=== PATIENT | female | born 1950 | race Caucasian/White ===

== ENCOUNTER → 2020-09-12 | Outpatient (CLI) | payer MEDICARE ==
--- NOTE | 2020-09-20 11:47 | MM ---
Reason for exam: screening (asymptomatic). Last mammogram was performed 1 year and 7 months ago. History: Family history of breast cancer in sister at age 69. Excisional biopsy of the right breast. Physical Findings: A clinical breast exam by your physician is recommended on an annual basis and results should be correlated with mammographic findings. MG 3D Screening Mammo W/Cad Bilateral CC and MLO view(s) were taken. Prior study comparison: February 23, 2019, mammogram, performed at [facility]. September 20, 2011, mammogram, performed at [facility]. There are scattered fibroglandular densities. No significant changes when compared with prior studies. ASSESSMENT: Benign, BI-RAD 2 RECOMMENDATION: Routine screening mammogram of both breasts in 1 year.
== END ==
LOC: RADMAMWWP 13:08 → EDBD 13:20
PROVIDERS: ATTEND Internal Medicine
DX: Z12.31 Encounter for screening mammogram for malignant neoplasm of breast (principal)
CPT/HCPCS: 77063; 77067

== ENCOUNTER → 2020-10-04 | Outpatient (CLI) | payer MEDICARE ==
--- NOTE | 2020-10-04 13:27 | US ---
EXAMINATION TYPE: US liver DATE OF EXAM: 10/04/2020 COMPARISON: NONE CLINICAL HISTORY: R10.11 Right Upper Quad Pain. EXAM MEASUREMENTS: Liver Length: 14.6 cm Gallbladder Wall: 0.2 cm CBD: 0.3 cm Right Kidney: 10.8 x 4.6 x 4.6 cm Pancreas: Small cyst may be present within the pancreas measuring 0.8cm. Cyst, cystadenoma and cystad enocarcinoma could be considered. Additional workup with contrast CT with pancreas protocol or MRI wi th contrast is recommended. Liver: limited views of right lobe due to overlying bowel gas Gallbladder: wnl as seen, somewhat limited views due to overlying bowel gas Evidence for sonographic Osorio's sign: no CBD: wnl Right Kidney: lobular contour IMPRESSION: 1. Cystic neoplasm of the body of the pancreas is not excluded. Additional workup is recommended A [place] level critical message alert has been initiated for Jesus Madrigal MD via the [facility] Critical Results System on 10/04/2020 1:25 PM. This message alert has been sent to Jesus Madrigal MD via the preferences provided by the clinician for the receipt of Radiology Critical Findings. Message ID [id number].
== END | disposition home or self-care (01) ==
LOC: EDBD → RADUSWWP 09:00
PROVIDERS: ATTEND Internal Medicine
DX: R10.11 Right upper quadrant pain (principal)
CPT/HCPCS: 76705

== ENCOUNTER → 2020-10-11 | Outpatient (CLI) | payer MEDICARE ==
--- NOTE | 2020-10-12 05:38 | MR ---
EXAMINATION TYPE: MR pancreas wo/w con DATE OF EXAM: 10/11/2020 COMPARISON: None HISTORY: Abd pain, abnormal US, cyst seen on Pancreas CONTRAST: Standard multiplanar, multisequence MRI departmental protocol utilizing 7.5 mL intravenous Gadavist g adolinium contrast. Liver has normal size and contour. Gallbladder appears normal. Spleen appears intact. There is no adrenal mass. Kidneys have normal size and contour. There is no hydronephrosis. There is no sign of retroperitoneal adenopathy. The pancreas has normal size. Pancreatic duct appears normal. There is elongated 16 x 7 mm area in th e body of the pancreas that could be a crossing vessel. This has low signal on the T2 images. I see n o pathologic enhancement. The remainder of the pancreas appears normal. There is no ascites. Lung bases show no sign of pleural effusion. There is no evidence of pericardial effusion. IMPRESSION: Elongated area in the body of the pancreas is probably the hypoechoic area seen on the recent ultraso und and I think this is related to a crossing vessel. No evidence of a solid pancreatic mass.
== END | disposition home or self-care (01) ==
LOC: RADMRIMAIN 06:10
PROVIDERS: ATTEND Internal Medicine
DX: R93.89 Abnormal findings on diagnostic imaging of other specified body structures (principal); K86.2 Cyst of pancreas
CPT/HCPCS: 74183; A9585

== ENCOUNTER 2021-03-15 11:19 | Inpatient (IN) | payer MEDICARE ==
--- NOTE | 2021-03-15 12:03 | ED ---
General Adult HPI - General Chief complaint: Neuro Symptoms/Deficit Stated complaint: abn CT scan of head Time Seen by Provider: 03/15/21 11:46 Source: patient, family, RN notes reviewed Mode of arrival: ambulatory Limitations: no limitations - History of Present Illness Initial comments: Patient is a pleasant 70-year-old female presenting to the emergency department for abnormal CT. Patient has been having headaches for the past 3-1/2 weeks. Headaches have been waxing and waning, sometimes severe. Headache is mild at this time, right posterior parietal region. Patient has had a couple of episodes of mild expressive aphasia, difficulty finding words or wrong words coming out. Never slurred speech or garbled speech. No speech problems today. Patient has also felt occasionally slightly off balance, no falling. Off balance has been mild. No extremity weakness or facial weakness. No loss of sensation. No confusion. - Related Data Allergies Allergy/AdvReac Type Severity Reaction Status Date / Time iodine Allergy Rash/Hives Verified 03/15/21 11:26 Review of Systems ROS Statement: Those systems with pertinent positive or pertinent negative responses have been documented in the HPI. ROS Other: All systems not noted in ROS Statement are negative. Constitutional: Denies: fever Eyes: Denies: eye pain ENT: Denies: ear pain Respiratory: Denies: cough Cardiovascular: Denies: chest pain Endocrine: Denies: fatigue Gastrointestinal: Denies: abdominal pain Genitourinary: Denies: dysuria Musculoskeletal: Denies: back pain Skin: Denies: rash Neurological: Reports: as per HPI, headache Past Medical History Past Medical History: Diabetes Mellitus, GERD/Reflux, Hyperlipidemia, Hypertension History of Any Multi-Drug Resistant Organisms: None Reported Past Surgical History: Appendectomy, Back Surgery Past Psychological History: No Psychological Hx Reported Smoking Status: Never smoker Past Alcohol Use History: None Reported Past Drug Use History: None Reported General Exam Limitations: no limitations General appearance: alert, in no apparent distress Head exam: Present: atraumatic, normocephalic Eye exam: Present: normal appearance, PERRL, EOMI ENT exam: Present: normal oropharynx Neck exam: Present: normal inspection Respiratory exam: Present: normal lung sounds bilaterally Cardiovascular Exam: Present: regular rate, normal rhythm GI/Abdominal exam: Present: soft. Absent: tenderness Extremities exam: Present: normal inspection Neurological exam: Present: alert, oriented X3, CN II-XII intact. Absent: motor sensory deficit Expanded Neurological exam: Present: protecting the airway Speech: Present: fluid speech Cranial nerves: EOM's Intact: Normal, Facial Sensation: Normal Sensory exam: Upper Extremity Light Touch: Normal, Lower Extremity Light Touch: Normal Motor strength exam: RUE: 5, LUE: 5, RLE: 5, LLE: 5 Eye Response: (4) open spontaneously Motor Response: (6) obeys commands Verbal Response: (5) oriented Psychiatric exam: Present: normal affect, normal mood Skin exam: Present: normal color Course Vital Signs 03/15/21 11:27 Temperature 97.8 F Pulse Rate 105 H Respiratory 18 Rate Blood Pressure 191/93 O2 Sat by Pulse 98 Oximetry EKG Findings - EKG Comments: EKG Findings:: No sinus rhythm with a rate of 100. MI 160. QRS 82. QT 346. QTc 446 per left axis. LVH criteria. No acute ST change. Medical Decision Making - Medical Decision Making Case was discussed with Dr. Sherman who recommends admission with neurology consult and MRI. He also recommends aspirin, brilinta, and Lipitor. Patient updated. Dr. Madrigal has been paged for admission. Case was discussed with Dr. Madrigal, who will admit his patient with consult for vascular. Disposition Clinical Impression: Transient cerebral ischemia Disposition: ADMITTED IP TO THIS HOSP Is patient prescribed a controlled substance at d/c from ED?: No Decision Time: 12:29
[2021-03-15] MEDS ORDERED: ASPIRIN 325 MG TAB PO STA (12:31)
[2021-03-15] MEDS ORDERED: TICAGRELOR 90 MG TAB PO STA (12:33)
[2021-03-15] MEDS: SODIUM CHLORIDE 0.9% 1,000 ML IV SCH ×2 (12:56→22:18)
[2021-03-15] MEDS: ATORVASTATIN 40 MG TAB PO SCH (12:57)
[2021-03-15 13:02] LABS: Basophils % (A) 0 %; Eosinophils # (A) 0.2 k/uL (0-0.7); Eosinophils % (A) 2 %; HCT 38.5 % (34.0-46.0); HGB 13.2 gm/dL (11.4-16.0); Lymphocytes # (A) 1.2 k/uL (1.0-4.8); Lymphocytes % (A) 8 %; MCH 28.9 pg (25.0-35.0); MCHC 34.3 g/dL (31.0-37.0); MCV 84.3 fL (80.0-100.0); Mean Platelet Volume 9.5; Monocytes # (A) 0.2 k/uL (0-1.0); Monocytes % (A) 1 %; Neutrophils # (A) 12.6 k/uL (1.3-7.7); Neutrophils % (A) 89 %; Platelet Count 164 k/uL (150-450); RBC 4.56 m/uL (3.80-5.40); RDW 13.4 % (11.5-15.5); WBC 14.2 k/uL (3.8-10.6)
[2021-03-15 13:13] LABS: INR 0.9 (<1.2); Partial Thromboplastin Time 22.4 sec (22.0-30.0); Prothrombin Time 10.2 sec (9.0-12.0)
--- NOTE | 2021-03-15 13:40 | XR ---
EXAMINATION TYPE: XR chest 2V DATE OF EXAM: 03/15/2021 COMPARISON: None HISTORY: 70-year-old female confusion, altered mental status TECHNIQUE: PA and lateral views FINDINGS: The cardiomediastinal silhouette, aorta, and pulmonary vasculature are within normal limits. Intersti tial prominence. No consolidation or pleural effusion. IMPRESSION: Interstitial prominence may in part be chronic. Consider bronchitis or chronic asthma. No focal infil trate seen.
[2021-03-15 13:47] LABS: Calcium 9.8 mg/dL (8.4-10.2); Total Bilirubin 0.5 mg/dL (0.2-1.3)
[2021-03-15 14:12] LABS: Albumin 4.3 g/dL (3.5-5.0); Potassium 5.3 mmol/L (3.5-5.1); Total Protein 7.6 g/dL (6.3-8.2)
--- NOTE | 2021-03-15 14:47 | P.HPIM ---
History of Present Illness H&P Date: 03/15/21 Martina Lopez, is a 70-year-old female who presented to the office last week with a chief complaint of severe headache that started 1 week prior to presentation, patient was extremely worried to due to having family members with brain aneurysm, CT angiogram of the brain was ordered and was done this morning, and it did not show any evidence of aneurysm in the [place], however there was evidence of severe bilateral internal carotid artery plaque formation, with evidence of complete occlusion of the proximal left internal carotid artery. Patient was sent to emergency room she was evaluated in emergency room and admitted to telemetry floor, vascular surgery consultation was requested, patient was continuing to having severe headache, neurology consultation was REQUESTED IN THE EMERGENCY ROOM. Past medical history is significant for history of hypertension, history of hyperlipidemia, history of insulin-dependent diabetes mellitus, and history of pancreatic cyst. Patient is a lifelong nonsmoker. Past Medical History Past Medical History: Diabetes Mellitus, GERD/Reflux, Hyperlipidemia, Hypertension History of Any Multi-Drug Resistant Organisms: None Reported Past Surgical History: Appendectomy, Back Surgery Past Psychological History: No Psychological Hx Reported Smoking Status: Never smoker Past Alcohol Use History: None Reported Past Drug Use History: None Reported Medications and Allergies Home Medications Medication Instructions Recorded Confirmed Type Ascorbic Acid [Vitamin C] 1,000 mg PO DAILY 03/15/21 03/15/21 History Aspirin EC [Ecotrin Low Dose] 81 mg PO DAILY 03/15/21 03/15/21 History Cholecalciferol [Vitamin D3 (25 25 mcg PO DAILY 03/15/21 03/15/21 History Mcg = 1000 Iu)] Insulin Degludec [Tresiba 32 units SQ AC-SUPPER 03/15/21 03/15/21 History Flextouch U-200 Pen] Insulin Lispro [humaLOG Kwikpen] 18 unit SQ AC-LUNCH 03/15/21 03/15/21 History Insulin Lispro [humaLOG Kwikpen] 18 unit SQ DAILY PRN 03/15/21 03/15/21 History Insulin Lispro [humaLOG Kwikpen] 24 unit SQ HS 03/15/21 03/15/21 History Insulin Lispro [humaLOG Kwikpen] 28 unit SQ AC-BRKFST 03/15/21 03/15/21 History Liraglutide [Victoza 3-Sin] 1.8 mg SQ DAILY 03/15/21 03/15/21 History Omeprazole [PriLOSEC] 20 mg PO DAILY 03/15/21 03/15/21 History Prevagen 1 cap PO DAILY 03/15/21 03/15/21 History Simvastatin 10 mg PO AC-SUPPER 03/15/21 03/15/21 History Vit C/E/Zn/Coppr/Lutein/Zeaxan 1 cap PO DAILY 03/15/21 03/15/21 History [Preservision Areds 2 Softgel] lisinopriL [Zestril] 20 mg PO DAILY 03/15/21 03/15/21 History Allergies Allergy/AdvReac Type Severity Reaction Status Date / Time iodine Allergy Rash/Hives Verified 03/15/21 13:19 Physical Exam Vitals: Vital Signs Temp Pulse Resp BP Pulse Ox 03/15/21 13:00 99 18 03/15/21 12:33 96 18 03/15/21 11:27 97.8 F 105 H 18 191/93 98 Intake and Output 03/14/21 03/15/21 03/15/21 22:59 06:59 14:59 Other: Weight 74.843 kg In general patient is alert and oriented x 3 in no distress HEENT head normocephalic and atraumatic Neck is supple no JVD no goiter no lymphadenopathy no carotid bruit Chest examination is clear to auscultation no crackles no wheezing Cardiac exam reveals regular heart sounds S1 and S2 no gallops no murmurs Abdomen is soft nontender no organomegaly with normal bowel sounds Extremity exam reveals no edema no cyanosis or clubbing Neurological examination reveals no gross focal deficits Results CBC & Chem 7: 03/15/21 12:49 03/15/21 12:49 Labs: Abnormal Lab Results - Last 24 Hours (Table) 03/15/21 Range/Units 12:49 WBC 14.2 H (3.8-10.6) k/uL Neutrophils # 12.6 H (1.3-7.7) k/uL Assessment and Plan Plan: Severe intractable headache for the last 2-3 weeks Severe bilateral carotid artery plaque formation in bilateral carotid arteries with evidence of 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
[2021-03-15 16:19] LABS: Glucose,Whole Blood 142 mg/dL (75-99)
[2021-03-15] MEDS ORDERED: ALPRAZolam 0.5 MG TAB PO PRN (18:36)
[2021-03-15] MEDS ORDERED: HYDROcodone/APAP 5-325MG 1 EACH TAB PO PRN (18:39)
[2021-03-15] MEDS ORDERED: ASPIRIN-ACET-CAFF 250-250-65MG 1 EACH TAB PO PRN (18:57)
[2021-03-15 20:13] LABS: Glucose,Whole Blood 267 mg/dL (75-99)
[2021-03-15] MEDS: ACETAMINOPHEN TAB 325 MG TAB PO PRN (20:45)
[2021-03-15] MEDS: TICAGRELOR 90 MG TAB PO SCH (20:46)
[2021-03-15] MEDS: INSULIN ASPART (NovoLOG) 100 UNIT/ML VIAL SQ SCH (20:51)
--- NOTE | 2021-03-15 23:25 | P.CNNES ---
History of Present Illness Consult date: 03/15/21 Requesting physician: Arvind Padilla Reason for Consult: TIA, stenosis History of Present Illness: Patient is a 70-year-old female came to the hospital this morning at 11:19 AM for cephalgia and abnormal CTA head and neck. Patient 3-1/2 weeks ago started having pain in the right upper occipital region. It has been consistent headache which she has never had in the past. The headache comes and goes. The Excedrin dulls the headache but once it wears off, it goes up to 10+/10. It has been occurring every day. Only couple times in the last 3 weeks that she had no headache but otherwise mostly present. Patient states that she also is very talkative. A couple times in the last 1 week she had instance, when she had some word finding problem, but her help her out. It was not lasting for any length of time, only spontaneous occurrences sporadically, which she was not sure if it was "really a significant speech problem". Patient denies any numbness tingling any focal symptoms whatsoever. No facial droop or any problem with the vision. As patient's son has history of cerebral aneurysms, therefore she was seen by her primary physician, who initiated CTA of head and neck, which showed abnormality as below, therefore she was referred to the ER for further evaluation. Her vital signs on arrival blood pressure 191/93, pulse rate 105, temperature 97.8. Blood test shows WBC 14.2 hemoglobin 13.2, BUN 26, creatinine 0.94. EKG shows normal sinus rhythm. Minimal voltage criteria for LVH. CTA of head and neck showed severe plaque causing complete occlusion proximal left ICA, shortly after its origin. Additional severe calcified plaque supraclinoid segment while lateral ICAs, cannot exclude significant stenosis. No aneurysm at the level of [place]. Patient has been given aspirin 325 mg in the ER. Also given Brillinta 180 mg stat. Patient has history of diabetes for 10 years and her last A1c is 6.0 as per patient. Hypertension for couple years. She never smoked. He never drinks alcohol. She has been taking aspirin 81 mg daily for last 1-1/2 years. Her home medications include aspirin 81 mg, insulin, omeprazole, lisinopril 20 mg simvastatin 10 mg, victoza Review of Systems Completely unremarkable except as mentioned HPI. Denies any fever or chills. No chest pain, abdominal pain, nausea vomiting diarrhea, loss of control of urine. No dysuria. No dysphagia. No hearing loss. No visual disturbance. Past Medical History Past Medical History: Diabetes Mellitus, GERD/Reflux, Hyperlipidemia, Hyp ertension History of Any Multi-Drug Resistant Organisms: None Reported Past Surgical History: Appendectomy, Back Surgery Past Psychological History: No Psychological Hx Reported Smoking Status: Never smoker Past Alcohol Use History: None Reported Past Drug Use History: None Reported Medications and Allergies Home Medications Medication Instructions Recorded Confirmed Type Ascorbic Acid [Vitamin C] 1,000 mg PO DAILY 03/15/21 03/15/21 History Aspirin EC [Ecotrin Low Dose] 81 mg PO DAILY 03/15/21 03/15/21 History Cholecalciferol [Vitamin D3 (25 25 mcg PO DAILY 03/15/21 03/15/21 History Mcg = 1000 Iu)] Insulin Degludec [Tresiba 32 units SQ AC-SUPPER 03/15/21 03/15/21 History Flextouch U-200 Pen] Insulin Lispro [humaLOG Kwikpen] 18 unit SQ AC-LUNCH 03/15/21 03/15/21 History Insulin Lispro [humaLOG Kwikpen] 18 unit SQ DAILY PRN 03/15/21 03/15/21 History Insulin Lispro [humaLOG Kwikpen] 24 unit SQ HS 03/15/21 03/15/21 History Insulin Lispro [humaLOG Kwikpen] 28 unit SQ AC-BRKFST 03/15/21 03/15/21 History Liraglutide [Victoza 3-Sin] 1.8 mg SQ DAILY 03/15/21 03/15/21 History Omeprazole [PriLOSEC] 20 mg PO DAILY 03/15/21 03/15/21 History Prevagen 1 cap PO DAILY 03/15/21 03/15/21 History Simvastatin 10 mg PO AC-SUPPER 03/15/21 03/15/21 History Vit C/E/Zn/Coppr/Lutein/Zeaxan 1 cap PO DAILY 03/15/21 03/15/21 History [Preservision Areds 2 Softgel] lisinopriL [Zestril] 20 mg PO DAILY 03/15/21 03/15/21 History Allergies Allergy/AdvReac Type Severity Reaction Status Date / Time iodine Allergy Rash/Hives Verified 03/15/21 13:19 Physical Examination - Vital Signs Vital Signs: Vital Signs Temp Pulse Resp BP Pulse Ox 03/15/21 13:00 99 18 03/15/21 12:33 96 18 03/15/21 11:27 97.8 F 105 H 18 191/93 98 Intake and Output 03/14/21 03/15/21 03/15/21 22:59 06:59 14:59 Other: Weight 74.843 kg Patient is an elderly female, very pleasant, in no acute distress. Patient is alert awake oriented to time place and person. Speech and language functions are normal. Patient can name and repeat very well. No aphasia or dysarthria. Comprehension is perfect intact. Attention, concentration and fund of knowledge is adequate. On cranial examination, pupils are equal, round and reacting to light, visual steel are full on confrontation, extraocular muscles are intact with no nystagmus. Face is symmetric, tongue protrudes to the midline. Palatal elevation and sensation normal, hearing and shoulder shrug normal, facial sensation normal. Shoulder shrug normal. On muscle strength testing, there is no pronator drift and the strength is normal in arms and legs distally and proximally. Deep tendon reflexes are 2+ all over and plantars are extremely sensitive therefore withdrew. Sensory to touch is equal with no neglect on double simultaneous stimulation. Cerebellar function showed no ataxia for nahaxv-[id number]-pucc testing. No dysdiadochokinesia. Tone and bulk of muscles normal. Gait normal. On general examination, there is no carotid bruit or murmur, S1-S2 audible. Abdomen is soft nontender. Chest is clear. Peripheral pulses are present. No edema. Results - Laboratory Findings CBC and BMP: 03/15/21 12:49 03/15/21 12:49 Abnormal Lab Findings: Abnormal Labs 03/15/21 12:49 WBC 14.2 H Neutrophils # 12.6 H Assessment and Plan Assessment: * New onset cephalgia and some intermittent word finding difficulty. Rule out TIA * Probable complete occlusion left ICA. Possible significant stenosis s upraclinoid bilateral ICA. Rule out embolic source. * Hypertension * Diabetes * Family history of cerebral aneurysm Plan: * CTA of head and neck showed severe plaque causing complete occlusion proximal left ICA, shortly after its origin. Additional severe calcified plaque rodriguez praclinoid segment bilateral ICAs, cannot exclude significant stenosis. No aneurysm at the level of [place]. * Await vascular surgery consultation. * 2-D echo has been completed, results pending. * Agree with dual antiplatelet medication with Brilinta 90 mg twice a day and aspirin 81 mg daily. Patient has received a loading dose of Brilinta in the ER. * Telemetry monitoring so far showing sinus tachycardia in the low 100s. No other arrhythmia. * Fasting lipid panel, hemoglobin A1c * Continue neuro checks. * Permissive hypertension. Treat blood pressure if systolic > 200 and diastolic > 110. * Thank you for the consult.
[2021-03-16 06:17] LABS: Glucose,Whole Blood 119 mg/dL (75-99)
[2021-03-16] MEDS ORDERED: ASPIRIN 325 MG TAB PO SCH (09:00)
[2021-03-16] MEDS ORDERED: NON FORMULARY DRUG (Aspirin Ec 81 MG Tablet) PO SCH (09:00)
[2021-03-16] MEDS: INSULIN ASPART (NovoLOG) 100 UNIT/ML VIAL SQ SCH ×3 (09:41→21:37)
[2021-03-16] MEDS: TICAGRELOR 90 MG TAB PO SCH ×2 (09:41→21:33)
[2021-03-16] MEDS: ENOXAPARIN 40 MG/0.4 ML SYRINGE SQ SCH (09:41)
[2021-03-16] MEDS: VIT A,C & E-LUTEIN-MINERALS 1 EACH TAB PO SCH (09:42)
[2021-03-16] MEDS: lisinopriL 20 MG TAB PO SCH (09:42)
[2021-03-16] MEDS: ASPIRIN 81 MG PO SCH (09:42)
[2021-03-16] MEDS: ASCORBIC ACID 500 MG TAB PO SCH (09:42)
[2021-03-16] MEDS: ATORVASTATIN 40 MG TAB PO SCH (09:42)
[2021-03-16] MEDS: PANTOPRAZOLE 40 MG TABLET PO SCH (09:42)
[2021-03-16] MEDS: CHOLECALCIFEROL 25 MCG (1000 IU) TABLET PO SCH (09:42)
[2021-03-16] MEDS: NON FORMULARY DRUG (Liraglutide [Victoza 3-Pak] 0.6 MG/0.1 ML Ml) SQ SCH (09:43)
[2021-03-16] MEDS: SODIUM CHLORIDE 0.9% 1,000 ML IV SCH ×3 (09:44→21:32)
[2021-03-16] MEDS: NON FORMULARY DRUG (Prevagen 1 CAP) PO SCH (09:45)
--- NOTE | 2021-03-16 09:52 | US ---
EXAMINATION TYPE: US carotid duplex BILAT DATE OF EXAM: 03/16/2021 COMPARISON: CTA CLINICAL HISTORY: Left ICA occlusion per CTA. Patient stated had EXAM MEASUREMENTS: RIGHT: Peak Systolic Velocity (PSV) cm/sec ----- Right CCA: 82.7 ----- Right ICA: 120.0 ----- Right ECA: 96.3 Proximal ICA/CCA ratio: 1.5 RIGHT: End Diastole cm/sec ----- Right CCA: 14.1 ----- Right ICA: 23.4 ----- Right ECA: 0.0 LEFT: Peak Systolic Velocity (PSV) cm/sec ----- Left CCA: 80.1 ----- Left ICA: 221.8 Mid ----- Left ECA: 133.8 ICA/CCA ratio: 2.8 LEFT: End Diastole cm/sec ----- Left CCA: 16.7 ----- Left ICA: 40.7 ----- Left ECA: 0.0 VERTEBRALS (direction of flow): Right Vertebral: Antegrade Left Vertebral: Antegrade Rhythm: Normal IMPRESSION: Irregular moderate mixed wall plaque noted bilateral carotid system with abnormally elev ated PSV in Left ICA and Left ECA. NASCET criteria was used in interpretation of this exam? Criteria for Assigning % of Stenosis / Diameter reduction (Estimation based on the indirect measurements of the internal carotid artery velocities (ICA PSV). 1. Normal (no stenosis)=ICA PSV < 125 cm/s: ratio < 2.0: ICA EDV<40 cm/s. 2. Less than 50% stenosis=ICA PSV < 125 cm/s: ratio < 2.0: ICA EDV<40 cm/s. 3. 50 to 69% stenosis=ICA PSV of 125 to 230 cm/s: ration 2.0 ? 4.0: ICA EDV 40-100 cm/s. 4. Greater than 70% stenosis to near occlusion= ICA PSV > 230 cm/s: ratio > 4.0: ICA EDV > 100 cm/s. 5. Near occlusion= ICA PSV velocities may be low or undetectable: variable ratio and ICA EDV. 6. Total occlusion=unable to detect flow.
[2021-03-16] MEDS: ACETAMINOPHEN TAB 325 MG TAB PO PRN (09:53)
--- NOTE | 2021-03-16 10:31 | ECHOF ---
Referral Reason:Thrombus MEASUREMENTS -------- HEIGHT: 162.6 cm WEIGHT: 74.8 kg BP: IVSd: 1.3 cm (0.6 - 1.1) LVIDd: 3.9 cm (3.9 - 5.3) LVPWd: 1.3 cm (0.6 - 1.1) IVSs: 1.7 cm LVIDs: 2.7 cm LVPWs: 1.4 cm LAESV Index (A-L): 30.88 ml/m Ao Diam: 2.7 cm (2.0 - 3.7) MV EXCURSION: 15.304 mm (> 18.000) MV EF SLOPE: 105 mm/s (70 - 150) MV E Julio: 1.18 m/s MV DecT: 98 ms MV A Julio: 0.68 m/s MV E/A Ratio: 1.74 RAP: 5.00 mmHg RVSP: 11.51 mmHg FINDINGS -------- Sinus rhythm. This was a technically adequate study. The left ventricular size is normal. There is mild concentric left ventricular hypertrophy. Overa ll left ventricular systolic function is low-normal with, an EF between 50 - 55 %. The right ventricle is normal in size. LA is midly dilated 29-33ml/m2. The right atrial size is normal. The aortic valve was not well visualized. Mild mitral regurgitation is present. Mild tricuspid regurgitation present. Right ventricular systolic pressure is normal at < 35 mmHg. The pulmonic valve was not well visualized. There is no pericardial effusion. CONCLUSIONS -------- 1. The left ventricular size is normal. 2. There is mild concentric left ventricular hypertrophy. 3. Overall left ventricular systolic function is low-normal with, an EF between 50 - 55 %. 4. The right ventricle is normal in size. 5. LA is midly dilated 29-33ml/m2. 6. The right atrial size is normal. 7. The aortic valve was not well visualized. 8. Mild mitral regurgitation is present. 9. Mild tricuspid regurgitation present. 10. The pulmonic valve was not well visualized. 11. There is no pericardial effusion. CAKE KNOCKER: Alana Schilling RDCS
[2021-03-16 10:37] LABS: Chol/HDL Ratio 3.28
[2021-03-16 12:01] LABS: Glucose,Whole Blood 118 mg/dL (75-99)
--- NOTE | 2021-03-16 12:35 | P.GSCN ---
History of Present Illness Consult date: 03/16/21 Reason for Consult: Carotid Stenosis Requesting physician: Arvind Padilla History of present illness: This is an 80-year-old female who came into the emergency department yesterday morning with complaints of pain in her head and difficulty finding her words. The patient reports she has been having persistent headaches for the past 3-4 weeks, waxing and waning sometimes very severe. She had a outpatient CAT scan which was abnormal and was told to come to the emergency department for further evaluation. Patient has a past medical history of diabetes mellitus, GERD, hyperlipidemia, and hypertension. On admission she was noted to have elevated blood pressure of 191/93, heart rate 105. She underwent a CT angiogram of the head and neck that showed severe plaque causing complete occlusion proximal left ICA, shortly after its origin. Additional severe calcified plaque disease breath glenoid segment while lateral ICAs, cannot exclude significant stenosis no aneurysm at the level of [place]. Patient denies any other focal deficits such as weakness in the extremities, slurring of speech, visual distu rbances, or difficulty swallowing. She currently denies any focal deficits, shortness of breath, chest pain, abdominal pain, nausea, or vomiting. She denies any fever or chills. Patient states her son had 2 brain aneurysms. Denies any previous knowledge of carotid stenosis. States that diabetes has been well controlled. Review of Systems A 14 point review of systems was reviewed all pertinent positives and negatives as stated in the HPI. Past Medical History Past Medical History: Diabetes Mellitus, GERD/Reflux, Hyperlipidemia, Hypertension History of Any Multi-Drug Resistant Organisms: None Reported Past Surgical History: Appendectomy, Back Surgery Past Psychological History: No Psychological Hx Reported Smoking Status: Never smoker Past Alcohol Use History: None Reported Past Drug Use History: None Reported Medications and Allergies Home Medications Medication Instructions Recorded Confirmed Type Ascorbic Acid [Vitamin C] 1,000 mg PO DAILY 03/15/21 03/15/21 History Aspirin EC [Ecotrin Low Dose] 81 mg PO DAILY 03/15/21 03/15/21 History Cholecalciferol [Vitamin D3 (25 25 mcg PO DAILY 03/15/21 03/15/21 History Mcg = 1000 Iu)] Insulin Degludec [Tresiba 32 units SQ AC-SUPPER 03/15/21 03/15/21 History Flextouch U-200 Pen] Insulin Lispro [humaLOG Kwikpen] 18 unit SQ AC-LUNCH 03/15/21 03/15/21 History Insulin Lispro [humaLOG Kwikpen] 18 unit SQ DAILY PRN 03/15/21 03/15/21 History Insulin Lispro [humaLOG Kwikpen] 24 unit SQ HS 03/15/21 03/15/21 History Insulin Lispro [humaLOG Kwikpen] 28 unit SQ AC-BRKFST 03/15/21 03/15/21 History Liraglutide [Victoza 3-Sin] 1.8 mg SQ DAILY 03/15/21 03/15/21 History Omeprazole [PriLOSEC] 20 mg PO DAILY 03/15/21 03/15/21 History Prevagen 1 cap PO DAILY 03/15/21 03/15/21 History Simvastatin 10 mg PO AC-SUPPER 03/15/21 03/15/21 History Vit C/E/Zn/Coppr/Lutein/Zeaxan 1 cap PO DAILY 03/15/21 03/15/21 History [Preservision Areds 2 Softgel] lisinopriL [Zestril] 20 mg PO DAILY 03/15/21 03/15/21 History Allergies Allergy/AdvReac Type Severity Reaction Status Date / Time iodine Allergy Rash/Hives Verified 03/15/21 13:19 Surgical - Exam Vital Signs Temp Pulse Resp BP Pulse Ox 97.8 F 105 H 18 191/93 98 03/15/21 11:27 03/15/21 11:27 03/15/21 11:27 03/15/21 11:27 03/15/21 11:27 General appearance: The patient is alert, oriented, in no acute distress. HET: Head is normocephalic and atraumatic. Pupils are equal and reactive. Rudolph pharynx is clear without lesions. Neck: Supple without lymphadenopathy. Trachea midline. Heart: S1 S2. Regular rate and rhythm. Lungs: No crackles or wheezes are heard. Abdomen: Soft, nontender, nondistended with bowel sounds. No peritoneal signs. No palpable organomegaly or masses. Extremities: Normal skin color and turgor. No cyanosis, rash, ulceration, clubbing, or edema. Radial and pedal pulses are 2/4 bilaterally. Neurological: No focal deficits. Strength and sensation are grossly intact. Results - Labs 03/15/21 12:49 03/15/21 12:49 Abnormal Lab Results - Last 24 Hours (Table) 03/15/21 03/15/21 03/15/21 Range/Units 12:49 12:49 16:17 WBC 14.2 H (3.8-10.6) k/uL Neutrophils # 12.6 H (1.3-7.7) k/uL Sodium 132 L (137-145) mmol/L Potassium 5.3 H (3.5-5.1) mmol/L Carbon Dioxide 19 L (22-30) mmol/L BUN 28 H (7-17) mg/dL Glucose 200 H (74-99) mg/dL POC Glucose (mg/dL) 142 H (75-99) mg/dL AST 38 H (14-36) U/L 03/15/21 03/16/21 Range/Units 20:11 06:16 WBC (3.8-10.6) k/uL Neutrophils # (1.3-7.7) k/uL Sodium (137-145) mmol/L Potassium (3.5-5.1) mmol/L Carbon Dioxide (22-30) mmol/L BUN (7-17) mg/dL Glucose (74-99) mg/dL POC Glucose (mg/dL) 267 H 119 H (75-99) mg/dL AST (14-36) U/L Diabetes panel 03/15/21 Range/Units 12:49 Sodium 132 L (137-145) mmol/L Potassium 5.3 H (3.5-5.1) mmol/L Chloride 101 (98-107) mmol/L Carbon Dioxide 19 L (22-30) mmol/L BUN 28 H (7-17) mg/dL Creatinine 0.84 (0.52-1.04) mg/dL Glucose 200 H (74-99) mg/dL Calcium 9.8 (8.4-10.2) mg/dL AST 38 H (14-36) U/L ALT 21 (4-34) U/L Alkaline Phosphatase 84 (38-126) U/L Total Protein 7.6 (6.3-8.2) g/dL Albumin 4.3 (3.5-5.0) g/dL Calcium panel 03/15/21 Range/Units 12:49 Calcium 9.8 (8.4-10.2) mg/dL Albumin 4.3 (3.5-5.0) g/dL Pituitary panel 03/15/21 Range/Units 12:49 Sodium 132 L (137-145) mmol/L Potassium 5.3 H (3.5-5.1) mmol/L Chloride 101 (98-107) mmol/L Carbon Dioxide 19 L (22-30) mmol/L BUN 28 H (7-17) mg/dL Creatinine 0.84 (0.52-1.04) mg/dL Glucose 200 H (74-99) mg/dL Calcium 9.8 (8.4-10.2) mg/dL Adrenal panel 03/15/21 Range/Units 12:49 Sodium 132 L (137-145) mmol/L Potassium 5.3 H (3.5-5.1) mmol/L Chloride 101 (98-107) mmol/L Carbon Dioxide 19 L (22-30) mmol/L BUN 28 H (7-17) mg/dL Creatinine 0.84 (0.52-1.04) mg/dL Glucose 200 H (74-99) mg/dL Calcium 9.8 (8.4-10.2) mg/dL Total Bilirubin 0.5 (0.2-1.3) mg/dL AST 38 H (14-36) U/L ALT 21 (4-34) U/L Alkaline Phosphatase 84 (38-126) U/L Total Protein 7.6 (6.3-8.2) g/dL Albumin 4.3 (3.5-5.0) g/dL - Imaging Comments: See HPI Assessment and Plan Assessment: 1. Carotid stenosis, complete occlusion left ICA per CT angiogram 2. New-onset of headaches, with some intermittent difficulty with word finding 3. Diabetes 4. Hypertension 5. Hyperlipidemia Plan: 1. Continue symptomatic and supportive care 2. Obtain carotid ultrasound 3. Continued dual antiplatelet therapy and statin 4. Further recommendations to follow Thank you for this consultation, we will continue to follow. The impression and plan of care has been dictated as directed. Dr. Duffy I performed a history and examination of this patient, discussed the same with the dictator. I agree with the dictator's note ,documented as a scribe. Any additional findings or plans will be noted.
--- NOTE | 2021-03-16 14:15 | P.PN ---
Subjective Progress Note Date: 03/16/21 Martina Lopez, is a 70-year-old female who presented to the office last week with a chief complaint of severe headache that started 1 week prior to presentation, patient was extremely worried to due to having family members with brain aneurysm, CT angiogram of the brain was ordered and was done this morning, and it did not show any evidence of aneurysm in the [place], however there was evidence of severe bilateral internal carotid artery plaque formation, with evidence of complete occlusion of the proximal left internal carotid artery. Patient was sent to emergency room she was evaluated in emergency room and admitted to telemetry floor, vascular surgery consultation was requested, keke anguiano was continuing to having severe headache, neurology consultation was REQUESTED IN THE EMERGENCY ROOM. Past medical history is significant for history of hypertension, history of hyperlipidemia, history of insulin-dependent diabetes mellitus, and history of pancreatic cyst. Patient is a lifelong nonsmoker. On 03/16/2021 Patient was seen and examined on the medical floor, he is alert and oriented x 3 in no distress, he denies any complaints there is no fever or chills no headache or dizziness no chest pain no shortness of breath no palpitation no cough no nausea or vomiting no abdominal pain no diarrhea no blood in the stools no burning with urination no frequency or urgency and no hematuria, there is no weakness or numbness in any of the extremities no change in vision speech or gait. At this time patient was started on aspirin and Brillinta, blood pressure has been consistently elevated, with systolic blood pressure in the 180 range, amlodipine 5 mg by mouth once daily was added to regimen, will continue to monitor, carotid Doppler was ordered by vascular surgery, awaiting further recommendation will recheck in a.m.. Objective - Vital Signs Vital signs: Vital Signs Temp 97.6 F 03/16/21 12:05 Pulse 82 03/16/21 12:05 Resp 17 03/16/21 12:05 BP 182/65 03/16/21 12:05 Pulse Ox 96 03/16/21 12:05 Intake & Output 03/15/21 03/16/21 03/16/21 18:59 06:59 18:59 Intake Total 60 1200 125 Balance 60 1200 125 Weight 74.843 kg 72.1 kg Intake: Intake, IV Titration 900 Amount Sodium Chloride 0.9% 1, 900 000 ml @ 100 mls/hr IV . Q10H TERRI Rx#:[id number] Oral 60 300 125 Other: # Voids 1 1 - Exam In general patient is alert and oriented x 3 in no distress HEENT head normocephalic and atraumatic Neck is supple no JVD no goiter no lymphadenopathy no carotid bruit Chest examination is clear to auscultation no crackles no wheezing Cardiac exam reveals regular heart sounds S1 and S2 no gallops no murmurs Abdomen is soft nontender no organomegaly with normal bowel sounds Extremity exam reveals no edema no cyanosis or clubbing Neurological examination reveals no gross focal deficits - Labs CBC & Chem 7: 03/15/21 12:49 03/15/21 12:49 Labs: Abnormal Lab Results - Last 24 Hours (Table) 03/15/21 03/15/21 03/15/21 Range/Units 12:49 16:17 20:11 Sodium 132 L (137-145) mmol/L Potassium 5.3 H (3.5-5.1) mmol/L Carbon Dioxide 19 L (22-30) mmol/L BUN 28 H (7-17) mg/dL Glucose 200 H (74-99) mg/dL POC Glucose (mg/dL) 142 H 267 H (75-99) mg/dL AST 38 H (14-36) U/L 03/16/21 03/16/21 Range/Units 06:16 11:47 Sodium (137-145) mmol/L Potassium (3.5-5.1) mmol/L Carbon Dioxide (22-30) mmol/L BUN (7-17) mg/dL Glucose (74-99) mg/dL POC Glucose (mg/dL) 119 H 118 H (75-99) mg/dL AST (14-36) U/L Assessment and Plan Plan: Severe intractable headache for the last 2-3 weeks Severe bilateral carotid artery plaque formation in bilateral carotid arteries with evidence of 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
[2021-03-16] MEDS: amLODIPine 5 MG TAB PO SCH (14:35)
--- NOTE | 2021-03-16 15:54 | P.PN ---
Subjective Progress Note Date: 03/16/21 No new focal symptoms. Patient states she is still having headache in the same region, which she rates 5/10. With the Excedrin it goes down to 1/10. Objective - Vital Signs Vital signs: Vital Signs Temp 97.6 F 03/16/21 15:00 Pulse 77 03/16/21 15:00 Resp 18 03/16/21 15:00 BP 165/74 03/16/21 15:00 Pulse Ox 97 03/16/21 15:00 Intake & Output 03/15/21 03/16/21 03/16/21 18:59 06:59 18:59 Intake Total 60 1200 1425 Balance 60 1200 1425 Weight 74.843 kg 72.1 kg Intake: Intake, IV Titration 900 Amount Sodium Chloride 0.9% 1, 900 000 ml @ 100 mls/hr IV . Q10H TERRI Rx#:[id number] Oral 60 300 1425 Other: # Voids 1 1 7 - Exam Mental status, speech and language functions are normal. Cranial nerves are all normal. No pronator drift and the strength is normal no ataxia. Sensations are equal. - Labs CBC & Chem 7: 03/17/21 07:16 03/17/21 07:16 Labs: Abnormal Lab Results - Last 24 Hours (Table) 03/15/21 03/15/21 03/16/21 Range/Units 16:17 20:11 06:16 POC Glucose (mg/dL) 142 H 267 H 119 H (75-99) mg/dL 03/16/21 Range/Units 11:47 POC Glucose (mg/dL) 118 H (75-99) mg/dL Assessment and Plan Assessment: * New onset cephalgia and some intermittent word finding difficulty. Rule out TIA * Probable complete occlusion left ICA noted on CTA. Possible significant stenosis supraclinoid bilateral ICA. Rule out embolic source. * Hypertension * Diabetes * Family history of cerebral aneurysm Plan: * CTA of head and neck showed severe plaque causing complete occlusion proximal left ICA, shortly after its origin. Additional severe calcified plaque sup raclinoid segment bilateral ICAs, cannot exclude significant stenosis. No aneurysm at the level of [place] of [place]. * MRI/MRA of the brain without contrast, MRA of neck with and without contrast * Vascular surgery following. * 2-D echo revealed normal left ventricular size. Mild concentric LVH. EF is low normal between 50 and 55%. Left atrium is mildly dilated. * Agree with dual antiplatelet medication with Brilinta 90 mg twice a day and aspirin 81 mg daily. Patient has received a loading dose of Brilinta in the ER. * Telemetry monitoring so far showing sinus tachycardia in the low 100s. No other arrhythmia. * Fasting lipid panel with cholesterol 197, LDL 117, HDL 60 and triglycerides 100. Continue Lipitor 40 mg * Hemoglobin A1c 5.6 * Continue neuro checks. * Permissive hypertension. Treat blood pressure if systolic > 200 and diastolic > 110. * Discussed with vascular surgery in detail. * ESR, CRP, EMMY rule out vasculitis. * Dr. Elam will resume neurology service from the morning.
[2021-03-16 16:57] LABS: Glucose,Whole Blood 91 mg/dL (75-99)
[2021-03-16] MEDS ORDERED: SIMVASTATIN 10 MG PO SCH (17:30)
[2021-03-16] MEDS: INSULIN DETEMIR (LEVEMIR) 100 UNIT/ML SYR SQ SCH (19:27)
--- NOTE | 2021-03-16 20:26 | MR ---
EXAMINATION TYPE: MR brain wo con DATE OF EXAM: 03/16/2021 COMPARISON: Same day carotid ultrasound HISTORY: B/L carotid disease, left carotid occlusion, CVA? Standard multiplanar, multisequence MRI departmental protocol Multiplanar, multisequence images of the brain were acquired without contrast. Diffusion weighted carey ging was performed. FINDINGS: Diffusion weighted images demonstrate no evidence of a recent infarct or other diffusion abnormality. There is no worrisome acute extra-axial fluid collection. The ventricular system and cisternal spa jose juan are normal in size and appearance. There are moderate periventricular and subcortical T2 FLAIR hy perintense foci which may represent sequela of chronic microangiopathy change. Midline structures demonstrate normal morphology. The craniocervical junction appears within normal limits. The visualized sinuses and mastoid air cells are clear. Globes are grossly symmetric. IMPRESSION: No evidence of acute infarction.
--- NOTE | 2021-03-16 20:42 | MR ---
MAGNETIC RESONANCE ANGIOGRAPHY OF THE NECK WITH AND WITHOUT CONTRAST - CLINICAL INDICATION: CAROTID STENOSIS. COMPARISON: Same day carotid ultrasound. TECHNIQUE: Multiplanar, multi-sequence imaging as well as [id number] and phase contrast imaging w as performed extracranial vasculature of the neck. The patient was given 7 cc of Gadavist intravenou sly. 3-D reformatted images and maximum intensity projection reformatted images were submitted for e valuation. FINDINGS: RIGHT CAROTID SYSTEM: The proximal internal carotid artery demonstrates no evidence of hemo dynamically significant stenosis. The right common carotid artery and external carotid artery are un remarkable. LEFT CAROTID SYSTEM: At the origin of the left internal carotid artery there is approximately 50% st enosis. The left common carotid artery and external carotid artery are unremarkable. There is visualization of the right vertebral artery diffusely with no hemodynamically significant st enosis. The left vertebral artery is not visualized except for the V4 segment. IMPRESSIONS: 1. Approximately 50% stenosis of the origin of the left internal carotid artery. 2. The right vertebral artery appears patent. The left vertebral artery is not visualized diffusely throughout the cervical region, however is diminutively seen at the V4 segment. The left vertebral ar jordan was patent with antegrade flow on same day carotid ultrasound exam.
--- NOTE | 2021-03-16 20:48 | MR ---
MAGNETIC RESONANCE ANGIOGRAPHY OF THE BRAIN WITHOUT CONTRAST CLINICAL INDICATION: Bilateral carotid disease, left carotid occlusion TECHNIQUE: Magnetic resonance angiography of the intracranial vasculature was performed without the use of contrast. 3-D time of flight reformatted imaging was utilized. COMPARISONS: None. FINDINGS: There is no evidence of abnormal dilatation, hemodynamically significant stenosis, or large vessel occlusion. The left vertebral artery is not visualized until the V4 segment, and is diminuti ve. IMPRESSION: 1. No evidence of large vessel occlusion of the arteries of the head. 2. Left vertebral artery is not visualized until the V4 segment, and is diminutive. There was patency and antegrade flow of the left vertebral artery on same day carotid ultrasound.
[2021-03-16 21:17] LABS: Glucose,Whole Blood 156 mg/dL (75-99)
[2021-03-16 21:19] LABS: Glucose,Whole Blood 151 mg/dL (75-99)
[2021-03-17 00:08] LABS: Glucose,Whole Blood 80 mg/dL (75-99)
[2021-03-17] MEDS: ACETAMINOPHEN TAB 325 MG TAB PO PRN ×2 (00:13→05:29)
[2021-03-17 04:09] LABS: Glucose,Whole Blood 112 mg/dL (75-99)
[2021-03-17 06:26] LABS: Glucose,Whole Blood 101 mg/dL (75-99)
[2021-03-17] MEDS: SODIUM CHLORIDE 0.9% 1,000 ML IV SCH ×2 (06:36→16:02)
[2021-03-17 08:04] LABS: Basophils % (A) 0 %; Eosinophils # (A) 0.1 k/uL (0-0.7); Eosinophils % (A) 2 %; HCT 40.2 % (34.0-46.0); HGB 13.5 gm/dL (11.4-16.0); Lymphocytes # (A) 2.4 k/uL (1.0-4.8); Lymphocytes % (A) 28 %; MCH 28.8 pg (25.0-35.0); MCHC 33.5 g/dL (31.0-37.0); Mean Platelet Volume 8.7; Monocytes # (A) 0.6 k/uL (0-1.0); Monocytes % (A) 7 %; Neutrophils # (A) 5.1 k/uL (1.3-7.7); Neutrophils % (A) 61 %; Platelet Count 176 k/uL (150-450); RBC 4.68 m/uL (3.80-5.40); RDW 13.7 % (11.5-15.5); WBC 8.4 k/uL (3.8-10.6)
[2021-03-17] MEDS: INSULIN ASPART (NovoLOG) 100 UNIT/ML VIAL SQ SCH ×3 (08:33→20:55)
[2021-03-17] MEDS: amLODIPine 5 MG TAB PO SCH (08:34)
[2021-03-17] MEDS: ASCORBIC ACID 500 MG TAB PO SCH (08:34)
[2021-03-17] MEDS: CHOLECALCIFEROL 25 MCG (1000 IU) TABLET PO SCH (08:35)
[2021-03-17] MEDS: ASPIRIN 81 MG PO SCH (08:35)
[2021-03-17] MEDS: ENOXAPARIN 40 MG/0.4 ML SYRINGE SQ SCH (08:35)
[2021-03-17] MEDS: lisinopriL 20 MG TAB PO SCH ×2 (08:35→20:55)
[2021-03-17] MEDS: PANTOPRAZOLE 40 MG TABLET PO SCH (08:35)
[2021-03-17] MEDS: ATORVASTATIN 40 MG TAB PO SCH (08:35)
[2021-03-17] MEDS: TICAGRELOR 90 MG TAB PO SCH ×2 (08:36→20:55)
[2021-03-17] MEDS: VIT A,C & E-LUTEIN-MINERALS 1 EACH TAB PO SCH (08:36)
[2021-03-17] MEDS: NON FORMULARY DRUG (Liraglutide [Victoza 3-Pak] 0.6 MG/0.1 ML Ml) SQ SCH (08:44)
[2021-03-17] MEDS: NON FORMULARY DRUG (Prevagen 1 CAP) PO SCH (08:44)
[2021-03-17 08:50] LABS: Albumin 4.1 g/dL (3.5-5.0); Calcium 9.5 mg/dL (8.4-10.2); Potassium 4.3 mmol/L (3.5-5.1); Total Bilirubin 0.6 mg/dL (0.2-1.3); Total Protein 7.2 g/dL (6.3-8.2)
[2021-03-17 11:44] LABS: Glucose,Whole Blood 63 mg/dL (75-99)
[2021-03-17 11:59] LABS: Glucose,Whole Blood 71 mg/dL (75-99)
[2021-03-17] MEDS ORDERED: hydrALAZINE HCL 20 MG/ML 1 ML VIAL IVP PRN (15:35)
--- NOTE | 2021-03-17 15:48 | P.PN ---
Subjective Progress Note Date: 03/17/21 Principal diagnosis: carotid stenosis Patient seen and examined. Doing well. No complaints. Objective - Vital Signs Vital signs: Vital Signs Temp 97.9 F 03/17/21 11:09 Pulse 80 03/17/21 11:09 Resp 18 03/17/21 11:09 BP 196/86 03/17/21 11:09 Pulse Ox 97 03/17/21 11:09 Intake & Output 03/16/21 03/17/21 03/17/21 18:59 06:59 18:59 Intake Total 0031 789 6918 Balance 7752 659 7746 Weight 72 kg Intake: Intake, IV Titration 600 800 Amount Sodium Chloride 0.9% 1, 600 800 000 ml @ 100 mls/hr IV . Q10H TERRI Rx#:[id number] Oral 1425 240 240 Other: # Voids 7 2 1 - Constitutional General appearance: Present: average body habitus, cooperative - EENT Eyes: Present: PERRLA - Respiratory Respiratory: bilateral: CTA - Cardiovascular Rhythm: regular - Neurologic Neurologic: Absent: focal deficits - Psychiatric Psychiatric: Present: A&O x's 3, appropriate affect, intact judgment & insight - Labs CBC & Chem 7: 03/17/21 07:16 03/17/21 07:16 Labs: Abnormal Lab Results - Last 24 Hours (Table) 03/16/21 03/16/21 03/17/21 Range/Units 21:04 21:14 04:08 Chloride (98-107) mmol/L BUN (7-17) mg/dL Glucose (74-99) mg/dL POC Glucose (mg/dL) 151 H 156 H 112 H (75-99) mg/dL AST (14-36) U/L 03/17/21 03/17/21 03/17/21 Range/Units 06:24 07:16 11:42 Chloride 109 H (98-107) mmol/L BUN 21 H (7-17) mg/dL Glucose 103 H (74-99) mg/dL POC Glucose (mg/dL) 101 H 63 L (75-99) mg/dL AST 40 H (14-36) U/L 03/17/21 Range/Units 11:57 Chloride (98-107) mmol/L BUN (7-17) mg/dL Glucose (74-99) mg/dL POC Glucose (mg/dL) 71 L (75-99) mg/dL AST (14-36) U/L Assessment and Plan Assessment: 1. Carotid stenosis 2. headaches 3. DM 4. HTN Plan: Reviewed CTA, carotid doppler and MRA. Left carotid artery stenosis noted around 50%. No surgical intervention needed at this time. Will follow as outpatient.
--- NOTE | 2021-03-17 16:15 | P.PN ---
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 Patient was sent to emergency room she was evaluated in emergency room and admitted to telemetry floor, vascular surgery consultation was requested, keke anguiano was continuing to having severe headache, neurology consultation was REQUESTED IN THE EMERGENCY ROOM. Past medical history is significant for history of hypertension, history of hyperlipidemia, history of insulin-dependent diabetes mellitus, and history of pancreatic cyst. Patient is a lifelong nonsmoker. On 03/16/2021 Patient was seen and examined on the medical floor, he is alert and oriented x 3 in no distress, he denies any complaints there is no fever or chills no headache or dizziness no chest pain no shortness of breath no palpitation no cough no nausea or vomiting no abdominal pain no diarrhea no blood in the stools no burning with urination no frequency or urgency and no hematuria, there is no weakness or numbness in any of the extremities no change in vision speech or gait. At this time patient was started on aspirin and Brillinta, blood pressure has been consistently elevated, with systolic blood pressure in the 180 range, amlodipine 5 mg by mouth once daily was added to regimen, will continue to monitor, carotid Doppler was ordered by vascular surgery, awaiting further recommendation will recheck in a.m.. On 03/17/2021 patient was seen and examined on the telemetry floor she is alert and oriented 3 in no apparent distress, she is still complaining of headache o therwise she denies any complaints, blood pressure is extremely elevated, initially patient was reluctant to have any more blood pressure medications, she was convinced that she has white coat syndrome, however after prolonged counseling and multiple checks on her own with her own machine, she is now more agreeable to taking more medications, yesterday amlodipine 5 mg once daily was added, today I will increase lisinopril to 20 mg twice daily, she will also be given IV hydralazine when necessary for systolic blood pressure above 200, will continue to monitor will follow in a.m. Objective - Vital Signs Vital signs: Vital Signs Temp 97.5 F L 03/17/21 15:47 Pulse 85 03/17/21 15:47 Resp 18 03/17/21 15:47 BP 226/91 03/17/21 15:47 Pulse Ox 98 03/17/21 15:47 Intake & Output 03/16/21 03/17/21 03/17/21 18:59 06:59 18:59 Intake Total 4450 678 2561 Balance 1343 902 5173 Weight 72 kg Intake: Intake, IV Titration 600 800 Amount Sodium Chloride 0.9% 1, 600 800 000 ml @ 100 mls/hr IV . Q10H [facility] Rx#:[id number] Oral 1425 240 240 Other: # Voids 7 2 1 - Exam In general patient is alert and oriented x 3 in no distress HEENT head normocephalic and atraumatic Neck is supple no JVD no goiter no lymphadenopathy no carotid bruit Chest examination is clear to auscultation no crackles no wheezing Cardiac exam reveals regular heart sounds S1 and S2 no gallops no murmurs Abdomen is soft nontender no organomegaly with normal bowel sounds Extremity exam reveals no edema no cyanosis or clubbing Neurological examination reveals no gross focal deficits - Labs CBC & Chem 7: 03/17/21 07:16 03/17/21 07:16 Labs: Abnormal Lab Results - Last 24 Hours (Table) 03/16/21 03/16/21 03/17/21 Range/Units 21:04 21:14 04:08 Chloride (98-107) mmol/L BUN (7-17) mg/dL Glucose (74-99) mg/dL POC Glucose (mg/dL) 151 H 156 H 112 H (75-99) mg/dL AST (14-36) U/L 03/17/21 03/17/21 03/17/21 Range/Units 06:24 07:16 11:42 Chloride 109 H (98-107) mmol/L BUN 21 H (7-17) mg/dL Glucose 103 H (74-99) mg/dL POC Glucose (mg/dL) 101 H 63 L (75-99) mg/dL AST 40 H (14-36) U/L 03/17/21 Range/Units 11:57 Chloride (98-107) mmol/L BUN (7-17) mg/dL Glucose (74-99) mg/dL POC Glucose (mg/dL) 71 L (75-99) mg/dL AST (14-36) U/L Assessment and Plan Plan: Severe intractable headache for the last 2-3 weeks Hypertensive emergency with blood pressure up to 226/91, at this time will increase lisinopril to 20 mg twice daily, amlodipine 5 mg once daily was added yesterday, Will also cover with hydralazine 10 mg IV every 6 hours when necessary for systolic blood pressure above 200 Severe bilateral carotid artery plaque formation in bilateral carotid arteries with evidence of 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
[2021-03-17 16:40] LABS: Glucose,Whole Blood 123 mg/dL (75-99)
[2021-03-17] MEDS: INSULIN DETEMIR (LEVEMIR) 100 UNIT/ML SYR SQ SCH (17:56)
[2021-03-17 20:04] LABS: Glucose,Whole Blood 145 mg/dL (75-99)
[2021-03-17] MEDS ORDERED: ENALAPRILAT 1.25 MG/ML 1 ML VIAL IVP PRN (23:02)
[2021-03-17] MEDS: carvediloL 3.125 MG TAB PO SCH (23:13)
[2021-03-18 06:14] LABS: Glucose,Whole Blood 99 mg/dL (75-99)
[2021-03-18] MEDS: carvediloL 3.125 MG TAB PO SCH (06:32)
[2021-03-18] MEDS: amLODIPine 5 MG TAB PO SCH (08:24)
[2021-03-18] MEDS: ASCORBIC ACID 500 MG TAB PO SCH (08:24)
[2021-03-18] MEDS: ENOXAPARIN 40 MG/0.4 ML SYRINGE SQ SCH (08:25)
[2021-03-18] MEDS: lisinopriL 20 MG TAB PO SCH ×2 (08:25→20:33)
[2021-03-18] MEDS: ASPIRIN 81 MG PO SCH (08:25)
[2021-03-18] MEDS: ATORVASTATIN 40 MG TAB PO SCH (08:25)
[2021-03-18] MEDS: CHOLECALCIFEROL 25 MCG (1000 IU) TABLET PO SCH (08:25)
[2021-03-18] MEDS: VIT A,C & E-LUTEIN-MINERALS 1 EACH TAB PO SCH (08:26)
[2021-03-18] MEDS: PANTOPRAZOLE 40 MG TABLET PO SCH (08:26)
[2021-03-18] MEDS: TICAGRELOR 90 MG TAB PO SCH ×2 (08:26→20:33)
[2021-03-18] MEDS: INSULIN ASPART (NovoLOG) 100 UNIT/ML VIAL SQ SCH ×3 (09:40→20:34)
[2021-03-18] MEDS: NON FORMULARY DRUG (Prevagen 1 CAP) PO SCH (10:53)
[2021-03-18] MEDS: NON FORMULARY DRUG (Liraglutide [Victoza 3-Pak] 0.6 MG/0.1 ML Ml) SQ SCH (10:53)
[2021-03-18 11:34] LABS: Glucose,Whole Blood 82 mg/dL (75-99)
--- NOTE | 2021-03-18 12:49 | P.PN ---
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 Patient was sent to emergency room she was evaluated in emergency room and admitted to telemetry floor, vascular surgery consultation was requested, keke anguiano was continuing to having severe headache, neurology consultation was REQUESTED IN THE EMERGENCY ROOM. Past medical history is significant for history of hypertension, history of hyperlipidemia, history of insulin-dependent diabetes mellitus, and history of pancreatic cyst. Patient is a lifelong nonsmoker. On 03/16/2021 Patient was seen and examined on the medical floor, he is alert and oriented x 3 in no distress, he denies any complaints there is no fever or chills no headache or dizziness no chest pain no shortness of breath no palpitation no cough no nausea or vomiting no abdominal pain no diarrhea no blood in the stools no burning with urination no frequency or urgency and no hematuria, there is no weakness or numbness in any of the extremities no change in vision speech or gait. At this time patient was started on aspirin and Brillinta, blood pressure has been consistently elevated, with systolic blood pressure in the 180 range, amlodipine 5 mg by mouth once daily was added to regimen, will continue to monitor, carotid Doppler was ordered by vascular surgery, awaiting further recommendation will recheck in a.m.. On 03/17/2021 patient was seen and examined on the telemetry floor she is alert and oriented 3 in no apparent distress, she is still complaining of headache o therwise she denies any complaints, blood pressure is extremely elevated, initially patient was reluctant to have any more blood pressure medications, she was convinced that she has white coat syndrome, however after prolonged counseling and multiple checks on her own with her own machine, she is now more agreeable to taking more medications, yesterday amlodipine 5 mg once daily was added, today I will increase lisinopril to 20 mg twice daily, she will also be given IV hydralazine when necessary for systolic blood pressure above 200, will continue to monitor will follow in a.m. On 03/18/2021 Patient was seen and examined on the medical floor, he is alert and oriented x 3 in no distress, he denies any complaints there is no fever or chills no headache or dizziness no chest pain no shortness of breath no palpitation no cough no nausea or vomiting no abdominal pain no diarrhea no blood in the stools no burning with urination no frequency or urgency and no hematuria, there is no weakness or numbness in any of the extremities no change in vision speech or gait. Patient is feeling better blood pressure is still significantly elevated, at this time will increase caloric to 6.25 mg twice daily, and add hydrochlorothiazide 25 mg by mouth daily, will recheck in a.m., possible discharge to home tomorrow if stable. Objective - Vital Signs Vital signs: Vital Signs Temp 97.9 F 03/18/21 08:00 Pulse 91 03/18/21 08:00 Resp 18 03/18/21 08:00 BP 167/72 03/18/21 08:00 Pulse Ox 98 03/18/21 08:00 Intake & Output 03/17/21 03/18/21 03/18/21 18:59 06:59 18:59 Intake Total 1040 200 240 Output Total 300 Balance 1040 -100 240 Weight 71.8 kg Intake: Intake, IV Titration 800 Amount Sodium Chloride 0.9% 1, 800 000 ml @ 100 mls/hr IV . Q10H [facility] Rx#:[id number] Oral 240 200 240 Output: Urine 300 Other: Voiding Method Toilet Toilet # Voids 1 1 - Exam In general patient is alert and oriented x 3 in no distress HEENT head normocephalic and atraumatic Neck is supple no JVD no goiter no lymphadenopathy no carotid bruit Chest examination is clear to auscultation no crackles no wheezing Cardiac exam reveals regular heart sounds S1 and S2 no gallops no murmurs Abdomen is soft nontender no organomegaly with normal bowel sounds Extremity exam reveals no edema no cyanosis or clubbing Neurological examination reveals no gross focal deficits - Labs CBC & Chem 7: 03/17/21 07:16 03/17/21 07:16 Labs: Abnormal Lab Results - Last 24 Hours (Table) 03/17/21 03/17/2121 Range/Units 11:42 11:57 16:38 POC Glucose (mg/dL) 63 L 71 L 123 H (75-99) mg/dL 03/17/21 Range/Units 19:50 POC Glucose (mg/dL) 145 H (75-99) mg/dL Assessment and Plan Plan: Severe intractable headache for the last 2-3 weeks Hypertensive emergency with blood pressure up to 226/91, at this time will increase lisinopril to 20 mg twice daily, amlodipine 5 mg once daily was added yesterday, Will also cover with hydralazine 10 mg IV every 6 hours when necessary for systolic blood pressure above 200 Severe bilateral carotid artery plaque formation in bilateral carotid arteries with evidence of 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
[2021-03-18] MEDS: hydroCHLOROthiazide 25 MG TAB PO SCH (13:54)
[2021-03-18 16:28] LABS: Glucose,Whole Blood 92 mg/dL (75-99)
[2021-03-18] MEDS: carvediloL 6.25 MG TAB PO SCH (16:39)
[2021-03-18 20:22] LABS: Glucose,Whole Blood 218 mg/dL (75-99)
[2021-03-18] MEDS: INSULIN DETEMIR (LEVEMIR) 100 UNIT/ML SYR SQ SCH (20:33)
--- NOTE | 2021-03-18 23:24 | P.PN ---
Progress Note - Text Progress Note Date: 03/18/21 Dr. Elam was covering the neurology service on the weekend. Reviewed patient's chart to follow-up on the MRI and MRA. Spoke to patient's nurse on the phone. No headaches today. Patient's blood pressure has been running really high with most recent blood pressure 205/84, previously was 192/82 and prior 194/77. Patient apparently on Norvasc 5 mg given this morning, also Coreg 6.25 mg twice a day also given, Vasotec 1.25 mg IV push an hour ago (PRN) for high blood pressure. Also on HCTZ 25 mg daily. MRI of the brain showed no acute stroke. Showed some small vessel disease. MRA of the neck with and without contrast reported as 50% stenosis of the origin of left ICA. The right vertebral artery appears patent. The left vertebral artery is not visualized diffusely throughout the cervical region, however is diminutively seen at the V4 segment. The left vertebral artery was patent with antegrade flow on the same day carotid ultrasound exam. On my review, there is possibility of intracranial internal carotid artery stenosis bilaterally. MRA of the head revealed no evidence of large vessel occlusion of the arteries of the head. Left vertebral artery is not visualized until the V4 segment is diminutive. There was patency and antegrade flow on the left vertebral artery o n the same day carotid ultrasound. Optimize blood pressure gradually. Avoid hypotension however. Continue dual antiplatelet medications. We will increase Lipitor to 80 mg at bedtime, because of significant atherosclerotic cerebrovascular disease. Dr. Jv Hightower will resume neurology service in the morning. Mellissa Ly MD
[2021-03-18] MEDS ORDERED: FUROSEMIDE 10 MG/ML 2 ML VIAL IV ONE (23:38)
[2021-03-18 23:43] LABS: Glucose,Whole Blood 53 mg/dL (75-99)
[2021-03-19 00:01] LABS: Glucose,Whole Blood 83 mg/dL (75-99)
[2021-03-19] MEDS: carvediloL 6.25 MG TAB PO SCH (06:31)
[2021-03-19 07:03] LABS: Glucose,Whole Blood 128 mg/dL (75-99)
[2021-03-19 08:11] VITALS: RESP 17
[2021-03-19] MEDS: INSULIN ASPART (NovoLOG) 100 UNIT/ML VIAL SQ SCH ×2 (08:12→12:33)
[2021-03-19] MEDS: ASCORBIC ACID 500 MG TAB PO SCH (09:36)
[2021-03-19] MEDS: ASPIRIN 81 MG PO SCH (09:36)
[2021-03-19] MEDS: amLODIPine 5 MG TAB PO SCH (09:37)
[2021-03-19] MEDS: CHOLECALCIFEROL 25 MCG (1000 IU) TABLET PO SCH (09:37)
[2021-03-19] MEDS: ATORVASTATIN 40 MG TAB PO SCH (09:37)
[2021-03-19] MEDS: TICAGRELOR 90 MG TAB PO SCH (09:37)
[2021-03-19] MEDS: lisinopriL 20 MG TAB PO SCH (09:37)
[2021-03-19] MEDS: PANTOPRAZOLE 40 MG TABLET PO SCH (09:37)
[2021-03-19] MEDS: hydroCHLOROthiazide 25 MG TAB PO SCH (09:37)
[2021-03-19] MEDS: VIT A,C & E-LUTEIN-MINERALS 1 EACH TAB PO SCH (09:38)
[2021-03-19] MEDS: ENOXAPARIN 40 MG/0.4 ML SYRINGE SQ SCH (09:38)
[2021-03-19 10:11] LABS: Basophils % (A) 0 %; Eosinophils # (A) 0.2 k/uL (0-0.7); Eosinophils % (A) 2 %; HCT 40.3 % (34.0-46.0); HGB 13.6 gm/dL (11.4-16.0); Lymphocytes # (A) 2.3 k/uL (1.0-4.8); Lymphocytes % (A) 22 %; MCH 28.5 pg (25.0-35.0); MCHC 33.6 g/dL (31.0-37.0); MCV 84.8 fL (80.0-100.0); Mean Platelet Volume 9.1; Monocytes # (A) 0.6 k/uL (0-1.0); Monocytes % (A) 5 %; Neutrophils # (A) 7.4 k/uL (1.3-7.7); Neutrophils % (A) 70 %; Platelet Count 200 k/uL (150-450); RBC 4.76 m/uL (3.80-5.40); RDW 13.5 % (11.5-15.5); WBC 10.7 k/uL (3.8-10.6)
[2021-03-19] MEDS: NON FORMULARY DRUG (Liraglutide [Victoza 3-Pak] 0.6 MG/0.1 ML Ml) SQ SCH (10:15)
[2021-03-19] MEDS: NON FORMULARY DRUG (Prevagen 1 CAP) PO SCH (10:16)
[2021-03-19 10:38] LABS: Albumin 4.2 g/dL (3.5-5.0); Calcium 9.6 mg/dL (8.4-10.2); Total Bilirubin 0.6 mg/dL (0.2-1.3); Total Protein 7.3 g/dL (6.3-8.2)
[2021-03-19 11:50] VITALS: BP 178/76; PULSE 71; TEMP 97.8
[2021-03-19 12:03] LABS: Glucose,Whole Blood 52 mg/dL (75-99)
[2021-03-19 12:18] LABS: Glucose,Whole Blood 80 mg/dL (75-99)
--- NOTE | 2021-03-19 13:55 | P.DS ---
Providers Date of admission: 03/15/21 12:32 Expected date of discharge: 03/19/21 Attending physician: Jesus Madrigal Consults: 03/15/21 12:31 Consult Physician Urgent Consulting Provider: Mellissa Ly Consult Reason/Comments: tia, stenosis Do you want consulting provider notified?: Yes 03/15/21 12:45 Consult Physician Urgent Consulting Provider: Erik Macias Consult Reason/Comments: stenosis Do you want consulting provider notified?: Yes 03/19/21 00:25 Consult Physician Routine Consulting Provider: Travis Rosales Consult Reason/Comments: elevated BP Do you want consulting provider notified?: Yes, Notify in am Primary care physician: Jesus Kaitlin [place] Hospital Course: Diagnosis on discharge: 1. Severe intractable headache for the last 2-3 weeks 2. Hypertensive emergency with blood pressure up to 226/91, at this time will increase lisinopril to 20 mg twice daily, amlodipine 5 mg once daily was added yesterday, Will also cover with hydralazine 10 mg IV every 6 hours when necessary for systolic blood pressure above 200 multiple blood pressure medications were added during this admission, blood pressure is reasonably well controlled at the time of discharge. 3. 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 Underlying history of hypertension 5. Underlying history of hyperlipidemia 6. 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 Patient was sent to emergency room she was evaluated in emergency room and admitted to telemetry floor, vascular surgery consultation was requested, patient was continuing to having severe headache, neurology consultation was REQUESTED IN THE EMERGENCY ROOM. Past medical history is significant for history of hypertension, history of hyperlipidemia, history of insulin-dependent diabetes mellitus, and history of pancreatic cyst. Patient is a lifelong nonsmoker. On 03/16/2021 Patient was seen and examined on the medical floor, he is alert and oriented x 3 in no distress, he denies any complaints there is no fever or chills no headache or dizziness no chest pain no shortness of breath no palpitation no cough no nausea or vomiting no abdominal pain no diarrhea no blood in the stools no burning with urination no frequency or urgency and no hematuria, there is no weakness or numbness in any of the extremities no change in vision speech or gait. At this time patient was started on aspirin and Brillinta, blood pressure has been consistently elevated, with systolic blood pressure in the 180 range, amlodipine 5 mg by mouth once daily was added to regimen, will continue to monitor, carotid Doppler was ordered by vascular surgery, awaiting further recommendation will recheck in a.m.. On 03/17/2021 patient was seen and examined on the telemetry floor she is alert and oriented 3 in no apparent distress, she is still complaining of headache ot herwise she denies any complaints, blood pressure is extremely elevated, initially patient was reluctant to have any more blood pressure medications, she was convinced that she has white coat syndrome, however after prolonged counseling and multiple checks on her own with her own machine, she is now more agreeable to taking more medications, yesterday amlodipine 5 mg once daily was added, today I will increase lisinopril to 20 mg twice daily, she will also be given IV hydralazine when necessary for systolic blood pressure above 200, will continue to monitor will follow in a.m. On 03/18/2021 Patient was seen and examined on the medical floor, he is alert and oriented x 3 in no distress, he denies any complaints there is no fever or chills no headache or dizziness no chest pain no shortness of breath no palpitation no cough no nausea or vomiting no abdominal pain no diarrhea no blood in the stools no burning with urination no frequency or urgency and no hematuria, there is no weakness or numbness in any of the extremities no change in vision speech or gait. Patient is feeling better blood pressure is still significantly elevated, at this time will increase caloric to 6.25 mg twice daily, and add hydrochlorothiazide 25 mg by mouth daily, will recheck in a.m., possible discharge to home tomorrow if stable. On 03/19/2021atient was seen and examined on the medical floor, he is alert and oriented x 3 in no distress, he denies any complaints there is no fever or chills no headache or dizziness no chest pain no shortness of breath no palpitation no cough no nausea or vomiting no abdominal pain no diarrhea no blood in the stools no burning with urination no frequency or urgency and no hematuria, there is no weakness or numbness in any of the extremities no change in vision speech or gait. Patient is feeling much better at this time blood pressure is reasonably well controlled she was evaluated by cardiology and neurology and cleared for discharge she will be followed in our office on Friday. Plan - Discharge Summary New Discharge Prescriptions: New hydroCHLOROthiazide [Hydrodiuril] 25 mg PO DAILY tab Atorvastatin [Lipitor] 80 mg PO HS tab amLODIPine [Norvasc] 5 mg PO DAILY tab lisinopriL [Zestril] 20 mg PO BID tab Ticagrelor [Brilinta] 90 mg PO BID tab carvediloL [Coreg] 6.25 mg PO BID-W/MEALS tab Continue Vit C/E/Zn/Coppr/Lutein/Zeaxan [Preservision Areds 2 Softgel] 1 cap PO DAILY Prevagen 1 cap PO DAILY Omeprazole [PriLOSEC] 20 mg PO DAILY Insulin Degludec [Tresiba Flextouch U-200 Pen] 32 units SQ AC-SUPPER Cholecalciferol [Vitamin D3 (25 Mcg = 1000 Iu)] 25 mcg PO DAILY Aspirin EC [Ecotrin Low Dose] 81 mg PO DAILY Insulin Lispro [humaLOG Kwikpen] 18 unit SQ AC-LUNCH Insulin Lispro [humaLOG Kwikpen] 18 unit SQ DAILY PRN PRN Reason: Take with snack Liraglutide [Victoza 3-Sin] 1.8 mg SQ DAILY Ascorbic Acid [Vitamin C] 1,000 mg PO DAILY Insulin Lispro [humaLOG Kwikpen] 28 unit SQ AC-BRKFST Insulin Lispro [humaLOG Kwikpen] 24 unit SQ HS Discontinued Simvastatin 10 mg PO AC-SUPPER lisinopriL [Zestril] 20 mg PO DAILY Discharge Medication List Ascorbic Acid [Vitamin C] 1,000 mg PO DAILY 03/15/21 [History] Aspirin EC [Ecotrin Low Dose] 81 mg PO DAILY 03/15/21 [History] Cholecalciferol [Vitamin D3 (25 Mcg = 1000 Iu)] 25 mcg PO DAILY 03/15/21 [History] Insulin Degludec [Tresiba Flextouch U-200 Pen] 32 units SQ AC-SUPPER 03/15/21 [History] Insulin Lispro [humaLOG Kwikpen] 18 unit SQ AC-LUNCH 03/15/21 [History] Insulin Lispro [humaLOG Kwikpen] 18 unit SQ DAILY PRN 03/15/21 [History] Insulin Lispro [humaLOG Kwikpen] 24 unit SQ HS 03/15/21 [History] Insulin Lispro [humaLOG Kwikpen] 28 unit SQ AC-BRKFST 03/15/21 [History] Liraglutide [Victoza 3-Sin] 1.8 mg SQ DAILY 03/15/21 [History] Omeprazole [PriLOSEC] 20 mg PO DAILY 03/15/21 [History] Prevagen 1 cap PO DAILY 03/15/21 [History] Vit C/E/Zn/Coppr/Lutein/Zeaxan [Preservision Areds 2 Softgel] 1 cap PO DAILY 03/15/21 [History] Atorvastatin [Lipitor] 80 mg PO HS tab 03/19/21 [Rx] Ticagrelor [Brilinta] 90 mg PO BID tab 03/19/21 [Rx] amLODIPine [Norvasc] 5 mg PO DAILY tab 03/19/21 [Rx] carvediloL [Coreg] 6.25 mg PO BID-W/MEALS tab 03/19/21 [Rx] hydroCHLOROthiazide [Hydrodiuril] 25 mg PO DAILY tab 03/19/21 [Rx] lisinopriL [Zestril] 20 mg PO BID tab 03/19/21 [Rx] Follow up Appointment(s)/Referral(s): Matthew Faye DO [STAFF PHYSICIAN] - 2 Weeks Jesus Madrigal MD [Primary Care Provider] - 1-2 days
--- NOTE | 2021-03-19 15:02 | P.CRDCN ---
History of Present Illness History of present illness: HISTORY OF PRESENTING ILLNESS This is a pleasant 70-year-old female past medical history significant for type 2 diabetes, hyperlipidemia, hypertension. She does not follow with [facility]. We have been asked to see in consultation for elevated blood pressure. Patient presents to the emergency department on 03/15/[address] angiogram report that revealed severe plaque causing complete occlusion of proximal left internal carotid artery. Patient also symptoms of a headache and difficulty with some word finding. Neurology evaluated the patient. Vascular also evaluated the patient. Patient denies any history of coronary artery disease, MT, stroke. She states that she keep track of her diet and eats healthy. She manages her diabetes well. She denies family history of CAD. She denies any chest pain, shortness of breath, lightheadedness, dizziness, syncope. She denies any weakness or numbness. She denies smoking, alcohol use. She states at times did have difficulty word finding. MRA of the head revealed no evidence of large vessel occlusion of the arteries of the head. Left vertebral artery is not visualized until the V4 segment is diminutive. There was patency and antegrade flow on the left vertebral artery on the same day carotid ultrasound. MRA of the neck with and without contrast reported as 50% stenosis of the origin of left ICA. MRI of the brain was negative for any acute infarction. Blood pressure this morning 150/72 in the left arm, 178/76 in the right arm, heart rate 71, afebrile, maintaining oxygen saturations on room air. EKG was sinus rhythm, heart rate 100, no significant STT wave abnormalities. Echocardiogram was obtained which revealed an EF of 5055 percent, mild mitral regurgitation, mild tricuspid regurgitation. Laboratory data review WBC 10.7, hemoglobin 13.6, platelets 200, sodium 134, potassium 4.0, BUN 23, serum creatinine 1.1 REVIEW OF SYSTEMS At the time of my exam: CONSTITUTIONAL: Denies fever or chills. CARDIOVASCULAR: Denies chest pain, shortness of breath, orthopnea, PND or palpitations. RESPIRATORY: Denies cough. GASTROINTESTINAL: Denies abdominal pain, diarrhea, constipation, nausea or vomiting. MUSCULOSKELETAL: Denies myalgias. NEUROLOGIC: +headache. Denies numbness, tingling, or weakness. ENDOCRINE: Denies fatigue, weight change, polydipsia or polyurina. GENITOURINARY: Denies burning, hematuria or urgency with micturation. HEMATOLOGIC: Denies history of anemia or bleeding. PHYSICAL EXAMINATION CONSTITUTIONAL: No apparent distress. HEENT: Head is normocephalic. Pupils are equal, round. Sclerae anicteric. Mucous membranes of the mouth are moist. No JVD. No carotid bruit. CHEST EXAMINATION: Lungs are clear to auscultation. No chest wall tenderness is noted on palpation or with deep breathing. HEART EXAMINATION: Regular rate and rhythm. S1, S2 heard. No murmurs, gallops or rub. ABDOMEN: Soft, nontender. Positive bowel sounds. EXTREMITIES: 2+ peripheral pulses, no lower extremity edema and no calf tenderness. NEUROLOGIC EXAMINATION: Patient is awake, alert and oriented x3. ASSESSMENT: Headache Carotid Stenosis Hypertension Type 2 Diabetes PLAN Patient's BP 150/72 in the left arm, 178/76 in the right arm. There is improvement with BP with the current regimen Patient appears to be stable from a cardiology perspective to be discharged home Recommend further workup as an outpatient and patient to follow up in the office with Dr. Faye. Nurse Practitioner note has been reviewed, I agree with a documented findings and plan of care. Patient was seen and examined. Past Medical History Past Medical History: Diabetes Mellitus, GERD/Reflux, Hyperlipidemia, Hypertension History of Any Multi-Drug Resistant Organisms: None Reported Past Surgical History: Appendectomy, Back Surgery Past Psychological History: No Psychological Hx Reported Smoking Status: Never smoker Past Alcohol Use History: None Reported Past Drug Use History: None Reported Medications and Allergies Home Medications Medication Instructions Recorded Confirmed Type Ascorbic Acid [Vitamin C] 1,000 mg PO DAILY 03/15/21 03/15/21 History Aspirin EC [Ecotrin Low Dose] 81 mg PO DAILY 03/15/21 03/15/21 History Cholecalciferol [Vitamin D3 (25 25 mcg PO DAILY 03/15/21 03/15/21 History Mcg = 1000 Iu)] Insulin Degludec [Tresiba 32 units SQ AC-SUPPER 03/15/21 03/15/21 History Flextouch U-200 Pen] Insulin Lispro [humaLOG Kwikpen] 18 unit SQ AC-LUNCH 03/15/21 03/15/21 History Insulin Lispro [humaLOG Kwikpen] 18 unit SQ DAILY PRN 03/15/21 03/15/21 History Insulin Lispro [humaLOG Kwikpen] 24 unit SQ HS 03/15/21 03/15/21 History Insulin Lispro [humaLOG Kwikpen] 28 unit SQ AC-BRKFST 03/15/21 03/15/21 History Liraglutide [Victoza 3-Sin] 1.8 mg SQ DAILY 03/15/21 03/15/21 History Omeprazole [PriLOSEC] 20 mg PO DAILY 03/15/21 03/15/21 History Prevagen 1 cap PO DAILY 03/15/21 03/15/21 History Vit C/E/Zn/Coppr/Lutein/Zeaxan 1 cap PO DAILY 03/15/21 03/15/21 History [Preservision Areds 2 Softgel] Atorvastatin [Lipitor] 80 mg PO HS tab 03/19/21 Rx Ticagrelor [Brilinta] 90 mg PO BID tab 03/19/21 Rx amLODIPine [Norvasc] 5 mg PO DAILY tab 03/19/21 Rx carvediloL [Coreg] 6.25 mg PO BID-W/MEALS tab 03/19/21 Rx hydroCHLOROthiazide [Hydrodiuril] 25 mg PO DAILY tab 03/19/21 Rx lisinopriL [Zestril] 20 mg PO BID tab 03/19/21 Rx Allergies Allergy/AdvReac Type Severity Reaction Status Date / Time iodine Allergy Rash/Hives Verified 03/15/21 13:19 Physical Exam Vitals: Vital Signs Temp Pulse Resp BP BP Pulse Ox 03/19/21 11:49 97.8 F 71 17 150/72 178/76 96 03/19/21 08:00 71 17 03/19/21 07:50 97.5 F L 83 17 118/73 97 03/19/21 03:41 98.4 F 84 18 169/74 94 L 03/19/21 00:00 194/87 03/18/21 23:30 98.3 F 84 18 206/86 94 L 03/18/21 20:00 98 F 84 17 205/84 97 03/18/21 16:00 97.4 F L 81 18 192/82 96 Intake and Output 03/18/21 03/19/21 03/19/21 22:59 06:59 14:59 Intake Total 480 608 Output Total 400 Balance 480 -400 608 Intake: IV 10 0.9 10 Oral 480 598 Output: Urine 400 Other: Voiding Method Toilet Toilet Toilet # Voids 1 1 3 Weight 71.4 kg Results 03/19/21 09:51 03/19/21 09:51 Cardiac Enzymes 03/19/21 Range/Units 09:51 AST 38 H (14-36) U/L CBC 03/19/21 Range/Units 09:51 WBC 10.7 H (3.8-10.6) k/uL RBC 4.76 (3.80-5.40) m/uL Hgb 13.6 (11.4-16.0) gm/dL Hct 40.3 (34.0-46.0) % Plt Count 200 (150-450) k/uL Comprehensive Metabolic Panel 03/19/21 Range/Units 09:51 Sodium 134 L (137-145) mmol/L Potassium 4.0 (3.5-5.1) mmol/L Chloride 102 (98-107) mmol/L Carbon Dioxide 20 L (22-30) mmol/L BUN 23 H (7-17) mg/dL Creatinine 1.12 H (0.52-1.04) mg/dL Glucose 157 H (74-99) mg/dL Calcium 9.6 (8.4-10.2) mg/dL AST 38 H (14-36) U/L ALT 29 (4-34) U/L Alkaline Phosphatase 78 (38-126) U/L Total Protein 7.3 (6.3-8.2) g/dL Albumin 4.2 (3.5-5.0) g/dL Current Medications Generic Name Dose Route Start Last Admin Trade Name Israelq PRN Reason Stop Dose Admin Acetaminophen 650 mg 03/15/21 20:21 03/17/21 05:29 Acetaminophen Tab 325 Mg Tab PO 650 mg Q6HR PRN Administration Fever and/ or Pain Alprazolam 0.5 mg 03/15/21 18:36 03/17/21 22:42 Alprazolam 0.5 Mg Tab PO 0.5 mg Q6H PRN Administration Anxiety Amlodipine Besylate 5 mg 03/16/21 14:00 03/19/21 09:37 Amlodipine 5 Mg Tab PO 5 mg DAILY TERRI Administration Ascorbic Acid 1,000 mg 03/16/21 09:00 03/19/21 09:36 Ascorbic Acid 500 Mg Tab PO 1,000 mg DAILY [facility] Administration Aspirin 81 mg 03/16/21 09:00 03/19/21 09:36 Aspirin 81 Mg PO 81 mg DAILY [facility] Administration Atorvastatin Calcium 80 mg 03/19/21 21:00 Atorvastatin 80 Mg Tab PO HS [facility] Carvedilol 6.25 mg 03/18/21 17:30 03/19/21 06:31 Carvedilol 6.25 Mg Tab PO 6.25 mg BID-W/MEALS [facility] Administration Cholecalciferol 25 mcg 03/16/21 09:00 03/19/21 09:37 Cholecalciferol 25 Mcg (1000 Iu) Tablet PO 25 mcg DAILY [facility] Administration Enalaprilat 1.25 mg 03/17/21 23:02 03/18/21 22:44 Enalaprilat 1.25 Mg/Ml 1 Ml Vial IVP 1.25 mg Q6HR PRN Administration Blood Pressure - High Enoxaparin Sodium 40 mg 03/16/21 09:00 03/19/21 09:38 Enoxaparin 40 Mg/0.4 Ml Syringe SQ 40 mg DAILY [facility] Administration Hydrochlorothiazide 25 mg 03/18/21 13:00 03/19/21 09:37 Hydrochlorothiazide 25 Mg Tab PO 25 mg DAILY [facility] Administration Insulin Aspart 18 unit 03/16/21 12:30 03/19/21 12:33 Insulin Aspart (Novolog) 100 Unit/Ml Vial SQ Not Given AC-LUNCH [facility] Insulin Aspart 24 unit 03/15/21 21:00 03/18/21 20:34 Insulin Aspart (Novolog) 100 Unit/Ml Vial SQ 18 unit HS [facility] Administration Insulin Aspart 28 unit 03/16/21 07:30 03/19/21 08:12 Insulin Aspart (Novolog) 100 Unit/Ml Vial SQ 20 unit AC-BRKFST [facility] Administration Insulin Detemir 32 unit 03/16/21 17:30 03/18/21 20:33 Insulin Detemir (Levemir) 100 Unit/Ml Syr SQ 18 unit AC-SUPPER [facility] Administration Lisinopril 20 mg 03/17/21 21:00 03/19/21 09:37 Lisinopril 20 Mg Tab PO 20 mg BID [facility] Administration Multivitamins/Minerals 1 each 03/16/21 09:00 03/19/21 09:38 Vit A,C & A-Zoaegq-Gqveejqj 1 Each Tab PO 1 each DAILY [facility] Administration Non-Formulary Medication 1.8 mg 03/16/21 09:00 03/19/21 10:15 Liraglutide [Victoza 3-Sin] SQ Not Given DAILY [facility] Non-Formulary Medication 1 cap 03/16/21 09:00 03/19/21 10:16 Prevagen PO Not Given DAILY [facility] Pantoprazole Sodium 40 mg 03/16/21 09:00 03/19/21 09:37 Pantoprazole 40 Mg Tablet PO 40 mg DAILY [facility] Administration Ticagrelor 90 mg 03/15/21 21:00 03/19/21 09:37 Ticagrelor 90 Mg Tab PO 90 mg BID [facility] Administration Intake and Output 03/18/21 03/19/21 03/19/21 22:59 06:59 14:59 Intake Total 480 608 Output Total 400 Balance 480 -400 608 Intake: IV 10 0.9 10 Oral 480 598 Output: Urine 400 Other: Voiding Method Toilet Toilet Toilet # Voids 1 1 3 Weight 71.4 kg 03/19/21 09:51 03/19/21 09:51
[2021-03-19] MEDS ORDERED: ATORVASTATIN 80 MG TAB PO SCH (21:00)
== END 2021-03-19 15:00 | disposition home or self-care (01) | DRG 68 ==
LOC: EC 11:19 → 3SCARD 12:32
PROVIDERS: ADMIT Internal Medicine; ATTEND Internal Medicine
DX: I65.23 Occlusion and stenosis of bilateral carotid arteries (principal); I16.1 Hypertensive emergency; K86.2 Cyst of pancreas; R47.01 Aphasia; E78.5 Hyperlipidemia, unspecified; I10 Essential (primary) hypertension; I67.2 Cerebral atherosclerosis; Z79.02 Long term (current) use of antithrombotics/antiplatelets; Z79.4 Long term (current) use of insulin; Z79.82 Long term (current) use of aspirin; Z79.899 Other long term (current) drug therapy; K21.9 Gastro-esophageal reflux disease without esophagitis; R60.0 Localized edema; E11.9 Type 2 diabetes mellitus without complications; Z82.49 Family history of ischemic heart disease and other diseases of the circulatory system
CPT/HCPCS: 36415; 70496; 70498; 70544; 70549; 70551; 71046; 80053; 80061; 82565; 83036; 84484; 84520; 85025; 85610; 85652; 85730; 86038; 86140; 93005; 93306; 93880; 99285

== ENCOUNTER → 2021-03-15 | Outpatient (CLI) | payer MEDICARE ==
--- NOTE | 2021-03-15 09:46 | CT ---
EXAMINATION TYPE: CT angio head neck DATE OF EXAM: 03/15/2021 HISTORY: Headache of unusual duration COMPARISON: None. CT DLP: 1386.1 mGycm. Automated Exposure Control for Dose Reduction was Utilized. TECHNIQUE: CTA scan of the head and neck are performed without and with IV Contrast, patient injecte d with 65 mL of Isovue 370, axial images are obtained, coronal and sagittal reformatted images are re viewed. 3D reconstructed images are created on an independent workstation and reviewed. FINDINGS: Carotid/Vascular Structures: Mild calcified plaque in aortic arch. There is four-vessel origin from a ortic arch which is normal variant. Normal origin right common carotid artery from right brachiocepha lic artery. No significant plaque or stenosis in the common carotid arteries bilaterally. Moderate pe ripheral calcified plaque right carotid bulb extends into proximal internal carotid artery without si gnificant stenosis. There are patent external carotid arteries bilaterally without significant stenos is. There is more severe mixed plaque left carotid bulb extending into the proximal internal carotid artery causing complete occlusion. There is some reconstitution distal to this. There is additional s evere calcified plaque in the distal internal carotid arteries bilaterally, additional significant st enosis at this level particularly on the left difficult to exclude. There is dominant right vertebral artery. Vertebral arteries are patent to basilar junction. No signi ficant focal stenosis or aneurysmal change. Hypoplastic left posterior communicating artery period pa tent right posterior communicating artery. There is patent anterior communicating artery. There is no significant focal stenosis or aneurysm in the anterior circulation. Other: Noncontrast CT shows mild diffuse age-related cerebral atrophy an chronic small vessel ischemi c change. There is left foraminal 6 x 3 mm ossific projection could reflect small osteoma or ossified meningioma. Subcentimeter left thyroid nodule axial image 42. Moderate spurring and disc space narrowing C5-C6 and C6-C7 levels. IMPRESSION: Severe plaque causing complete occlusion proximal left internal carotid artery shortly af ter its origin. Additional severe calcified plaque supraclinoid segment bilateral internal carotid ar teries, cannot exclude significant stenosis. No aneurysm at level of the [place]. NASCET criteria was used in interpretation of this exam? A Yellow level critical message alert has been initiated for Jesus Madrigal MD via the [employer] Critical Results System on 03/15/2021 9:43 AM. This message alert has been sent to MD willie Ambrocio the preferences provided by the clinician for the receipt of Radiology Critical Findings. Message ID [id number].
== END | disposition home or self-care (01) ==
LOC: RADCTMAIN 06:25
PROVIDERS: ATTEND Internal Medicine
DX: I65.23 Occlusion and stenosis of bilateral carotid arteries (principal)
CPT/HCPCS: 82565; 84520; 70496; 70498; 36415; Q9967

== ENCOUNTER → 2021-12-19 | Outpatient (CLI) | payer MEDICARE ==
--- NOTE | 2021-12-20 11:00 | MM ---
Reason for Exam: Screening (asymptomatic). Last mammogram was performed 1 year(s) and 3 month(s) ago. Patient History: Menarche at age 10. First Full-Term at age 18. Hysterectomy at age 43. Excisional Biopsy on the Right side. Sister had breast cancer, age 69. Risk Values: Samara 5 year model risk: 4.0%. NCI Lifetime model risk: 9.6%. Prior Study Comparison: 09/20/2011 Screening Mammogram, [facility]. 02/23/2019 Screening Mammogram, [facility]. 09/12/2020 Bilateral Screening Mammogram, [facility]. Tissue Density: There are scattered fibroglandular densities. Findings: Analyzed By CAD. Benign-appearing regional and scattered linear calcifications throughout the right breast. Occasional scattered benign-appearing scattered punctate calcifications throughout the left breast redemonstrated. There is no suspicious group of microcalcifications or new suspicious mass in either breast. Overall Assessment: Benign, BI-RAD 2 Management: Screening Mammogram of both breasts in 1 year. A clinical breast exam by your physician is recommended on an annual basis and results should be correlated with mammographic findings. Electronically signed and approved by: Chidi Kenney M.D.
== END | disposition home or self-care (01) ==
LOC: RADMAMWWP 06:42
PROVIDERS: ATTEND Internal Medicine
DX: Z12.31 Encounter for screening mammogram for malignant neoplasm of breast (principal); Z80.3 Family history of malignant neoplasm of breast
CPT/HCPCS: 77063; 77067

== ENCOUNTER → 2022-06-03 | Outpatient (CLI) | payer MEDICARE ==
--- NOTE | 2022-06-04 07:28 | BD ---
EXAMINATION TYPE: Axial Bone Density DATE OF EXAM: 06/03/2022 COMPARISON: NONE CLINICAL HISTORY: 71 years year old Female. ICD-10 CODE: N95.1 MENOPAUSAL M85.88 DISRD OF BONE DENS ITY Height: 5 FT 2 1/2 IN Weight: 169 FRAX RISK QUESTIONS: Alcohol (3 or more units per day): NO Family History (Parent hip fracture): NO Glucocorticoids (More than 3mos): NO (Ex: prednisone, prednisolone, methylprednisolone, dexamethasone, and hydrocortisone). History of Fracture in Adulthood: NO Secondary Osteoporosis: 1. Type 1 Diabetes: NO 2. Hyperthyroidism: NO 3. Menopause before 45: YES 4. Malnutrition: NO 5. Chronic liver disease: NO Rheumatoid Arthritis: NO Current Tobacco Use: NO RISK FACTORS HISTORY OF: /Surgery to Spine/Hip(right/left)/Wrist (right/left): LUMBAR When: OVER 30 YEARS AGO Family History of Osteoporosis: NO Active: YES Diet low in dairy products/other sources of calcium: NO Postmenopausal woman: YES Take estrogen and/or progesterone medications: NO Lost more than 2 inches in height since high school: NO Frequent falls: NO Poor Health: GOOD Hyperparathyroidism: NO Adrenal Insufficiency: NO MEDICATIONS: Additional Medications: LISINOPRIL,SIMVASTATIN, OMEPRAZOLE, MEDS FOR VERTIGO, Additional History: EXAM MEASUREMENTS: Bone mineral density about the R hip (g/cm2): 0.985 Bone mineral density about the L hip (g/cm2): 1.003 T Score values are as follows: -----R Neck: -0.4 -----L Neck: -0.2 -----R Total: 0.4 -----L Total: 0.6 BASELINE Bone mineral density about the L Wrist (g/cm2): 0.652 T Score values are as follows: -----Dist. R+U: 0.0 -----Prox. R+U: 0.0 -----Radius total: -0.4 BASELINE FRAX%s: The graph provided illustrates a 3.1 % chance for a major osteoporotic fx and a 0.4 % chance for the hips probability for fx in 10 years time. IMPRESSION: Normal (Values between +1 and -1 indicate normal bone mass). Consider repeating this study in 5 year s or sooner if there is some new clinical indication. NOTE: T-SCORE=SD OF THE YOUNG ADULT MEAN.
== END | disposition home or self-care (01) ==
LOC: RADBDWWP 09:40
PROVIDERS: ATTEND Internal Medicine
DX: M85.88 Other specified disorders of bone density and structure, other site (principal); Z78.0 Asymptomatic menopausal state
CPT/HCPCS: 77080

== ENCOUNTER 2022-10-22 07:06 | Day surgery (SDC) | payer MEDICARE ==
[2022-10-16 13:41] VITALS: BMI 27.4
[~2022-10-22 07:06] MED LIST: LACTATED RINGERS 1,000 ML IV SCH; LIDOCAINE 1% (10MG/ML) FOR IV START INTRADERMA PRN
[2022-10-22 07:46] VITALS: TEMP 97.3
[2022-10-22 07:50] LABS: Glucose,Whole Blood 84 mg/dL (70-110)
[2022-10-22] MEDS ORDERED: PROPOFOL 10 MG/ML 20 ML VIAL IV ONE (07:56)
--- NOTE | 2022-10-22 08:31 | P.GSHP ---
History of Present Illness H&P Date: 10/22/22 Chief Complaint: Colon cancer screening 71-year-old female here today for colonoscopy. Last colonoscopy 8-10 years ago. That was normal. No bowel complaints. No family history of colon cancer. Past Medical History Past Medical History: Diabetes Mellitus, GERD/Reflux, Hyperlipidemia, Hypertension Additional Past Medical History / Comment(s): Hx dizzy spells when lying down, no treatment needed. History of Any Multi-Drug Resistant Organisms: None Reported Past Surgical History: Appendectomy, Back Surgery Additional Past Surgical History / Comment(s): Colonoscopy. Bilateral cataract surgery. Past Anesthesia/Blood Transfusion Reactions: No Reported Reaction, Motion Sickness Additional Past Anesthesia/Blood Transfusion Reaction / Comment(s): Patient states had no sedation with prior colonoscopy and doesn't want a lot with this one. Past Psychological History: No Psychological Hx Reported Smoking Status: Never smoker Past Alcohol Use History: None Reported Past Drug Use History: None Reported - Past Family History Sister(s) Family Medical History: Cancer Additional Family Medical History / Comment(s): Breast cancer. Medications and Allergies Home Medications Medication Instructions Recorded Confirmed Type Aspirin EC [Ecotrin Low Dose] 81 mg PO DAILY 03/15/21 10/16/22 History Cholecalciferol [Vitamin D3 (25 25 mcg PO DAILY 03/15/21 10/16/22 History Mcg = 1000 Iu)] Insulin Lispro [humaLOG Kwikpen] 16 - 20 unit SQ AC-TID PRN 03/15/21 10/22/22 History Insulin Lispro [humaLOG Kwikpen] 16 unit SQ AC-TID 03/15/21 10/22/22 History Omeprazole [PriLOSEC] 20 mg PO QAM 03/15/21 10/22/22 History Vit C/E/Zn/Coppr/Lutein/Zeaxan 1 cap PO DAILY 03/15/21 10/16/22 History [Preservision Areds 2 Softgel] Brain Support Supplement 1 tab PO DAILY 10/16/22 10/16/22 History Cyanocobalamin [Vitamin B-12] 500 mcg PO DAILY 10/16/22 10/16/22 History Insulin Degludec [Tresiba] 15 - 20 units SQ HS 10/16/22 10/22/22 History Melatonin (Dose Unknown) 1 tab PO DAILY 10/16/22 10/16/22 History Multivit-Min/Folic Acid/Biotin 133.3 mcg PO DAILY 10/16/22 10/16/22 History [Hair, Skin and Nails Softgel] Multivitamins, Thera [Multivitamin 1 tab PO DAILY 10/16/22 10/16/22 History (formulary)] Simvastatin [Zocor] 20 mg PO HS 10/16/22 10/22/22 History lisinopriL [Zestril] 20 mg PO QAM 10/16/22 10/22/22 History Allergies Allergy/AdvReac Type Severity Reaction Status Date / Time iodine Allergy Rash/Hives Verified 10/22/22 07:24 Surgical - Exam Vital Signs Temp Pulse Resp BP Pulse Ox 97.3 F L 82 16 196/73 97 10/22/22 07:29 10/22/22 07:29 10/22/22 07:29 10/22/22 07:29 10/22/22 07:29 Physical exam: General: Well-developed, well-nourished HEENT: Normocephalic, sclerae nonicteric Abdomen: Nontender, nondistended Extremities: No edema Neuro: Alert and oriented Assessment and Plan (1) Colon cancer screening Narrative/Plan: Will proceed with colonoscopy at this time. Current Visit: Yes Status: Acute Code(s): Z12.11 - ENCOUNTER FOR SCREENING FOR MALIGNANT NEOPLASM OF COLON SNOMED Code(s): 270681954
--- NOTE | 2022-10-22 08:32 | P.PCN ---
Date of Procedure: 10/22/22 Procedure(s) Performed: PREOPERATIVE DIAGNOSIS: Colon cancer screening POSTOPERATIVE DIAGNOSIS: Tortuous colon, small ascending colon lipoma, otherwise normal PROCEDURE: Colonoscopy ANESTHESIA: MAC SURGEON: Dinh Saucedo M.D. SPECIMENS: None ENDOSCOPIC PROCEDURE: The patient was placed on the endoscopy table in the left decubitus position. The Olympus colonoscope was inserted into the anus and passed under direct visualization to the base of the cecum. The appendiceal orifice was visualized. From that point the scope was slowly withdrawn inspecting all surfaces carefully. There were no neoplastic inflammatory or polypoid lesions throughout the cecum. In the ascending colon a small lipoma wa s noted measuring 1 cm. No biopsies were taken. The remainder of the ascending transverse descending sigmoid and rectum appeared normal. There was no visible diverticulosis. The colon was quite tortuous. Digital rectal examination was normal. The patient was taken to the recovery room in stable condition per anesthesia guidelines. RECOMMENDATIONS: Resume diet. Repeat colonoscopy 10 years.
[2022-10-22 08:57] VITALS: BP 154/62; PULSE 68; RESP 14
== END 2022-10-22 09:27 | disposition home or self-care (01) ==
LOC: ORWHC2ENDO 07:06
PROVIDERS: ATTEND Surgery
DX: Z12.11 Encounter for screening for malignant neoplasm of colon (principal); D17.5 Benign lipomatous neoplasm of intra-abdominal organs; K56.2 Volvulus; E11.9 Type 2 diabetes mellitus without complications; K21.9 Gastro-esophageal reflux disease without esophagitis; E78.5 Hyperlipidemia, unspecified; I10 Essential (primary) hypertension; Z90.49 Acquired absence of other specified parts of digestive tract; Z98.890 Other specified postprocedural states; Z98.41 Cataract extraction status, right eye; Z98.42 Cataract extraction status, left eye; Z80.3 Family history of malignant neoplasm of breast; Z79.82 Long term (current) use of aspirin; Z79.4 Long term (current) use of insulin; Z79.899 Other long term (current) drug therapy; Z91.041 Radiographic dye allergy status; T75.3XXD Motion sickness, subsequent encounter
CPT/HCPCS: J2704; G0121

== ENCOUNTER → 2022-12-20 | Outpatient (CLI) | payer MEDICARE ==
--- NOTE | 2022-12-23 11:46 | MM ---
Reason for Exam: Screening (asymptomatic). Last screening mammogram was performed 12 month(s) ago. Patient History: Menarche at age 10. First Full-Term at age 18. Hysterectomy at age 43. Postmenopausal. Patient has history of breast feeding. Excisional Biopsy on the Right side. Sister had breast cancer, age 69. Risk Values: Samara 5 year model risk: 4.0%. NCI Lifetime model risk: 9.0%. Prior Study Comparison: 02/23/2019 [facility] 09/12/2020 Bilateral Screening Mammogram, [facility]. 12/19/2021 Bilateral MG 3D screening mammo w/cad, [facility]. Tissue Density: The breast tissue is heterogeneously dense. This may lower the sensitivity of mammography. Findings: Analyzed By CAD. Benign-appearing calcifications bilaterally There is no suspicious group of microcalcifications or new suspicious mass in either breast. Overall Assessment: Benign, BI-RAD 2 Management: Screening Mammogram of both breasts in [address] [facility] will attempt to contact patient to return for supplemental views and ultrasound if indicated. Patient should continue monthly self-breast exams. A clinical breast exam by your physician is recommended on an annual basis. This exam should not preclude additional follow-up of suspicious palpable abnormalities. Note on Samara scores and lifetime risk: 1. A Samara score greater than 3% is considered moderate risk. If this is the case, consider specialist referral to assess eligibility for a risk reducing agent. 2. If overall lifetime risk for the development of breast cancer is 20% or higher, the patient may qualify for future screening with alternating mammogram and breast MRI. Electronically signed and approved by: Lino Bailey DO
== END | disposition home or self-care (01) ==
LOC: RADMAMWWP 09:43
PROVIDERS: ATTEND Internal Medicine
DX: Z12.31 Encounter for screening mammogram for malignant neoplasm of breast (principal); Z78.0 Asymptomatic menopausal state; Z80.3 Family history of malignant neoplasm of breast
CPT/HCPCS: 77063; 77067

== ENCOUNTER → 2023-02-20 | Outpatient (CLI) | payer MEDICARE ==
--- NOTE | 2023-02-20 16:32 | US ---
EXAMINATION TYPE: US venous doppler duplex LE LT DATE OF EXAM: 02/20/2023 4:22 PM COMPARISON: NONE CLINICAL INDICATION: Female, 72 years old with history of LLE; R22.42 LOCALIZED SWELLING, MASS AND DAGOBERTO MP; Pt states pain left leg SIDE PERFORMED: Left TECHNIQUE: The lower extremity deep venous system is examined utilizing real time linear array sonog almas with graded compression, doppler sonography and color-flow sonography. VESSELS IMAGED: Common Femoral Vein Deep Femoral Vein Greater Saphenous Vein * Femoral Vein Popliteal Vein Small Saphenous Vein * Proximal Calf Veins (* superficial vessels) Left Leg: Negative for DVT IMPRESSION: Grayscale, color doppler, spectral doppler imaging performed of the deep veins of the lo wer extremities. There is normal flow, compressibility, vascular waveforms.
== END | disposition home or self-care (01) ==
LOC: RADUSWWP 16:07
PROVIDERS: ATTEND Internal Medicine
DX: R22.42 Localized swelling, mass and lump, left lower limb (principal)

== ENCOUNTER → 2023-05-05 | Outpatient (CLI) | payer MEDICARE ==
[2023-05-05 08:50] LABS: African American GFR (CKD) 78 (>60 ml/min/1.73 sqM); Blood Urea Nitrogen 20 mg/dL (7-17); Non-African American GFR(CKD) 68 (>60 ml/min/1.73 sqM)
--- NOTE | 2023-05-05 11:08 | CT ---
EXAMINATION TYPE: CT abdomen pelvis w con CT DLP: 1485 mGycm, Automated exposure control for dose reduction was used. DATE OF EXAM: 05/05/2023 10:37 AM COMPARISON: None CLINICAL INDICATION:Female, 72 years old with history of R10.84 GENERALIZED ABDOMINAL PAIN; Rt sided pain TECHNIQUE: Standard CT of the abdomen and pelvis following the administration of 100 cc of Isovue 3 00 IV contrast material and oral contrast. Coronal and sagittal reformats were performed. FINDINGS: LOWER CHEST: Visualized lung bases are clear. Mitral annulus calcifications. Small coronary artery ca lcifications. ABDOMEN LIVER: Unremarkable GALLBLADDER AND BILE DUCTS: Unremarkable. PANCREAS: Unremarkable. SPLEEN: Unremarkable. ADRENAL GLANDS: Unremarkable. KIDNEYS AND URETERS: No evidence of hydronephrosis or renal calculus. The kidneys enhance symmetrical ly. Contrast is demonstrated within both collecting systems on the delayed phase. PELVIS BLADDER: Under distended, limiting evaluation REPRODUCTIVE: The uterus is surgically absent. ABDOMEN & PELVIS STOMACH AND BOWEL: Stomach and duodenum are unremarkable. Circumferential wall thickening of the sigm oid colon. Enteric contrast reaches the rectum. No evidence of bowel obstruction. The appendix is not definitively visualized however there is no significant inflammatory changes within the right lower quadrant. PERITONEUM: No evidence of pneumoperitoneum or free fluid. VASCULATURE: Mild atherosclerotic calcifications are present throughout the abdominal aorta and its b ranches. No evidence of aortic aneurysm. Multiple pelvic phleboliths. MUSCULOSKELETAL: No acute osseous abnormalities. Postsurgical changes from laminectomy at L4-S1. LYMPH NODES: No gross evidence for lymphadenopathy. SOFT TISSUE/ABDOMINAL WALL: Periumbilical bilateral skin thickening. IMPRESSION: Circumferential wall thickening of the sigmoid colon which may be due to underdistention versus colit is from an infectious/inflammatory process.
== END | disposition home or self-care (01) ==
LOC: RADCTMAIN 08:04
PROVIDERS: ATTEND Internal Medicine
DX: K63.89 Other specified diseases of intestine (principal)
CPT/HCPCS: 82565; 84520; 74177; Q9967

== ENCOUNTER → 2023-06-04 | Outpatient (CLI) | payer MEDICARE ==
--- NOTE | 2023-06-05 22:45 | MR ---
EXAMINATION TYPE: MR knee LT wo con DATE OF EXAM: 06/04/2023 COMPARISON: Outside left knee x-ray May 26, 2023 HISTORY: Lt knee pain, twisting injury TECHNIQUE: Multiplanar, multisequence images of the knee is performed without IV contrast. FINDINGS: MEDIAL MENISCUS: Anterior and posterior horns are intact without tear. LATERAL MENISCUS: Anterior and posterior horns are intact without tear. CRUCIATE LIGAMENTS: The anterior and posterior cruciate ligaments are intact and unremarkable. COLLATERAL LIGAMENTS: The medial collateral ligament and lateral collateral ligament complex are inta ct and unremarkable. EXTENSOR MECHANISM: Visualized quadriceps and patellar tendons are intact. EFFUSION: Small size suprapatellar joint effusion. POPLITEAL CYST: No popliteal/holman cyst. TRICOMPARTMENT SPACES: Moderate narrowing patellofemoral compartment with mild spurring. More mild na rrowing and spurring medial and lateral tibiofemoral compartments. CARTILAGE: Chondromalacia patella with cartilaginous loss along the posterior patellar pole. BONE MARROW SIGNAL: Focus of increased T2 signal along the posterior aspect of the patella. OTHER: Mild diffuse subcutaneous edema. IMPRESSION: 1. Tricompartment degenerative changes most prominent medial tibial femoral compartment as detailed a rosemary. 2. No meniscal or ligamentous tear is seen. 3. Small suprapatellar joint effusion.
== END | disposition home or self-care (01) ==
LOC: RADMRIMAIN 06:21
PROVIDERS: ATTEND Orthopaedic Surgery
DX: M17.12 Unilateral primary osteoarthritis, left knee (principal); M25.462 Effusion, left knee; X50.1XXA Overexertion from prolonged static or awkward postures, initial encounter

== ENCOUNTER → 2023-08-30 | Outpatient (CLI) | payer MEDICARE ==
--- NOTE | 2023-08-31 12:35 | MR ---
EXAMINATION TYPE: MR brain wo con DATE OF EXAM: 08/30/2023 2:39 PM CLINICAL INDICATION:Female, 72 years old with history of R42 DIZZINESS GIDDINESS; PHH, Dizziness, Gai t disturbance, Pain back of head into neck, Sinus issues COMPARISON: 03/16/2021. TECHNIQUE: Multi planar, multi sequence imaging was performed through the brain including: T1, T2, In version recovery, Diffusion weighted imaging, and gradient echo imaging. No gadolinium was given. FINDINGS: The kiser-white junctions, ventricular system, basal cisterns appear unremarkable. Scattered foci of high T2 signal intensity are seen within the periventricular white matter. Midline structures show n o abnormality. Diffusion-weighted imaging shows no evidence of restricted diffusion. The susceptibili ty weighted images do not reveal any evidence for micro-hemorrhage. The bone marrow signal is within normal limits. Paranasal sinuses and mastoid air cells: No significant paranasal sinus disease. Visualized orbits: Bilateral aphakia IMPRESSION: 1. No evidence of intracranial mass or acute/subacute infarct. 2. Nonspecific white matter changes, likely secondary to small vessel ischemic disease. 3. No significant paranasal sinus disease.
== END | disposition home or self-care (01) ==
LOC: RADMRIMAIN 13:23
PROVIDERS: ATTEND Internal Medicine
DX: R42 Dizziness and giddiness (principal)
CPT/HCPCS: 70551

== ENCOUNTER → 2023-12-19 | Outpatient (CLI) | payer MEDICARE | END | disposition home or self-care (01) | LOC: RADCTMAIN 13:47 | PROVIDERS: ATTEND Internal Medicine | DX: N39.0 Urinary tract infection, site not specified (principal); M54.50 Low back pain, unspecified ==

== ENCOUNTER → 2023-12-22 | Outpatient (CLI) | payer MEDICARE ==
--- NOTE | 2023-12-22 15:54 | MM ---
Reason for Exam: Screening (asymptomatic). Last screening mammogram was performed 12 month(s) ago. Patient History: Menarche at age 10. First Full-Term at age 18. Hysterectomy at age 43. Postmenopausal. Patient has history of breast feeding. Excisional Biopsy on the Right side. Sister had breast cancer, age 69. Risk Values: Samara 5 year model risk: 4.0%. NCI Lifetime model risk: 8.5%. Prior Study Comparison: 09/12/2020 Bilateral Screening Mammogram, [facility]. 12/19/2021 Bilateral MG 3D screening mammo w/cad, [facility]. 12/20/2022 Bilateral MG 3D screening mammo w/cad, [facility]. Tissue Density: There are scattered areas of fibroglandular density. Findings: Analyzed By CAD. The pattern is symmetrical. Scattered benign calcifications are present. Some linear calcifications are within the right breast. No suspicious groups of microcalcifications, spiculated or lobular masses, architectural distortion or other secondary signs of malignancy are mammographically apparent. Overall Assessment: Benign, BI-RAD 2 Management: Screening Mammogram of both breasts in 1 year. A negative mammogram report should not preclude additional follow up of suspicious palpable abnormalities. Patient should continue monthly self breast exam. A clinical breast exam by your physician is recommended on an annual basis and results should be correlated with mammographic findings. Note on Samara scores and lifetime risk: 1. A Samara score greater than 3% is considered moderate risk. If this is the case, consider specialist referral to assess eligibility for a risk reducing agent. 2. If overall lifetime risk for the development of breast cancer is 20% or higher, the patient may qualify for future screening with alternating mammogram and breast MRI. Electronically signed and approved by: Kannan Benitez D.O. Radiologis
== END | disposition home or self-care (01) ==
LOC: RADMAMWWP 09:15
PROVIDERS: ATTEND Internal Medicine
DX: Z12.31 Encounter for screening mammogram for malignant neoplasm of breast (principal); Z78.0 Asymptomatic menopausal state; Z80.3 Family history of malignant neoplasm of breast
CPT/HCPCS: 77063; 77067

== ENCOUNTER → 2024-01-02 | Outpatient (CLI) | payer MEDICARE ==
--- NOTE | 2024-01-02 22:40 | US ---
EXAMINATION TYPE: US kidneys/renal and bladder DATE OF EXAM: 01/02/2024 COMPARISON: CT 05/05/2023 CLINICAL INDICATION: Female, 73 years old with history of R10.9 ABD PAIN; LLQ pain x 1 month. EXAM MEASUREMENTS: Right Kidney: 10.7 x 5.5 x 5.0 cm Left Kidney: 10.1 x 4.6 x 5.5 cm Right Kidney: No hydronephrosis or masses seen Left Kidney: Complex area seen upper pole: 2.7 x 2.0 x 2.5 cm. *Hyperechoic focus with posterior shadowing seen at mid: 0.5 x 0.5 x 0.2 cm. Bladder: Appears wnl Bilateral Jets seen: Only left jet was seen during the exam. Right kidney is unremarkable without evidence for hydronephrosis, solid mass, or nephrolithiasis. Lef t kidney demonstrates no hydronephrosis. There is a hyperechoic focus with shadowing is seen within t he mid left kidney measuring up to 0.5 cm most consistent with a calculus. Complex area seen within t he upper pole the left kidney demonstrating regions of hypoechogenicity. No internal color flow ident ified. No correlate is seen on previous CT. Urinary bladder is unremarkable without filling defect. O nly the left ureteral jet was seen. IMPRESSION: 1. No hydronephrosis. 2. Nonobstructive left renal calculus. 3. Complex indeterminate left upper pole region. Etiologies include artifact versus dilated calyx clover daren mass. Further evaluation with CT or MR abdomen renal mass protocol is recommended.
== END | disposition home or self-care (01) ==
LOC: RADUSWWP 12-31 15:08
PROVIDERS: ATTEND Internal Medicine
DX: N20.0 Calculus of kidney (principal)
CPT/HCPCS: 76770

== ENCOUNTER → 2024-04-26 | Outpatient (CLI) | payer MEDICARE ==
--- NOTE | 2024-04-27 09:38 | MR ---
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 COMPARISON: MR brain 08/30/2023, 03/16/2021, MRA neck 03/16/2021, MRA head 03/16/2021 carotid ultrasound 03/16/2021. TECHNIQUE: Multiplanar, multi-sequence imaging as well as [id number] and phase contrast imaging w as performed extracranial vasculature of the neck. The patient was given 7 cc of Gadavist intravenou sly. 3-D reformatted images and maximum intensity projection reformatted images were submitted for ev aluation. NASCET criteria was utilized. FINDINGS: RIGHT CAROTID SYSTEM: The proximal internal carotid artery demonstrates no significant sten osis. The right common carotid artery and external carotid artery are unremarkable. LEFT CAROTID SYSTEM: There is approximately 50% stenosis again demonstrated at the origin of the lef t internal carotid artery. The left common carotid artery and external carotid artery do not demonstr ate any significant stenosis. The origins of the great vessels are unremarkable. The right vertebral artery is patent and dominant. There is patchy visualization of the diminutive left vertebral artery throughout its course. The V1, V2, are V4 segments are visualized. This is similar to prior exam. IMPRESSION: 1. Left proximal internal carotid artery stenosis which is similar to the prior examination represen ting approximately 50%. 2. No significant stenosis involving the right carotid artery system. 3. Dominant patent right vertebral artery with similar patchy visualization of the diminutive left ve rtebral artery. [facility], , 04/27/2024 9:36 AM
== END | disposition home or self-care (01) ==
LOC: RADMRIMAIN 18:19
PROVIDERS: ATTEND Internal Medicine
DX: I65.23 Occlusion and stenosis of bilateral carotid arteries (principal)
CPT/HCPCS: 70549

== ENCOUNTER → 2024-05-20 | Outpatient (CLI) | payer MEDICARE ==
[2024-05-20 19:16] LABS: HCT 39.3 % (37.2-46.3); HGB 12.9 g/dL (12.0-15.0); MCH 28.9 pg (27.0-32.0); MCHC 32.8 g/dL (32.0-37.0); MCV 88.1 FL (80.0-97.0); Mean Platelet Volume 13.2 FL (9.5-12.2); NRBC Per 100 WBC 0 X 10*3/uL (0.00-0.01); Platelet Count 176 X 10*3/uL (140-440); RBC 4.46 X 10*6/uL (4.10-5.20); RDW 12.5 % (11.5-14.5); WBC 9.05 X 10*3/uL (4.50-10.00)
[2024-05-20 20:10] LABS: Blood Urea Nitrogen 26.1 mg/dL (9.0-27.0); Carbon Dioxide 25.5 mmol/L (21.6-31.8); Chloride 103 mmol/L (96-109); Potassium 4.2 mmol/L (3.5-5.5); Sodium 140 mmol/L (135-145)
== END | disposition home or self-care (01) ==
LOC: LABPAT 14:31
PROVIDERS: ATTEND Internal Medicine
DX: Z01.812 Encounter for preprocedural laboratory examination (principal); I65.22 Occlusion and stenosis of left carotid artery; R06.02 Shortness of breath
CPT/HCPCS: 80051; 82565; 84520; 85027

== ENCOUNTER 2024-05-26 10:34 | Day surgery (SDC) | payer MEDICARE ==
[~2024-05-26 10:34] MED LIST changes: +ALPRAZolam 0.25 MG TAB PO PRN; +ALPRAZolam 0.5 MG TAB PO PRN; +HEPARIN SODIUM,PORCINE (1 ML) 2,500 UNIT in SODIUM CHLORIDE 0.9% 250 ML IRRIGATION PRN; +HEPARIN SODIUM,PORCINE 10,000 UNIT in SODIUM CHLORIDE 0.9% 1,000 ML IRRIGATION PRN; -LACTATED RINGERS 1,000 ML IV SCH; -LIDOCAINE 1% (10MG/ML) FOR IV START INTRADERMA PRN; +NITROGLYCERIN SL TABS 0.4 MG TAB SUBLINGUAL PRN
[2024-05-26] MEDS: SODIUM CHLORIDE 0.9% 1,000 ML in EMPTY BAG 1 BAG IV SCH (11:00)
[2024-05-26] MEDS: ASPIRIN 325 MG TAB PO STA (11:00)
[2024-05-26] MEDS: ATORVASTATIN 80 MG TAB PO STA (11:01)
[2024-05-26] MEDS: IV FLUID CONTINUATION 1,000 ML IV ONE (11:02)
[2024-05-26 11:17] VITALS: RESP 16; TEMP 98.1
[2024-05-26 11:18] LABS: Glucose,Whole Blood 183 mg/dL (70-110)
[2024-05-26] MEDS: fentaNYL (PF) 50 MCG/ML 2 ML AMP IVP ONE (12:00)
[2024-05-26] MEDS: MIDAZOLAM 2 MG/2 ML VIAL IVP ONE (12:00)
[2024-05-26] MEDS: LIDOCAINE 1% INJ 10MG/ML (20 ML MDV) SQ ONE (12:02)
[2024-05-26] MEDS: VERAPAMIL SYRINGE (5 MG/10 ML) INTRAARTER ONE (12:02)
[2024-05-26] MEDS: HEPARIN SODIUM 1,000 UN/ML (10ML VL) IVP ONE ×3 (12:06→12:44)
[2024-05-26] MEDS: CLOPIDOGREL 75 MG TAB PO ONE (12:43)
[2024-05-26] MEDS: NITROGLYCERIN 1000MCG/10ML SYRINGE INTRAARTER ONE (12:45)
[2024-05-26] MEDS: HEPARIN SODIUM,PORCINE 10,000 UNIT in SODIUM CHLORIDE 0.9% 1,000 ML IRRIGATION ONE (13:08)
[2024-05-26] MEDS: IOPAMIDOL-370 100ML BTL INJ ONE (13:08)
[2024-05-26] MEDS: HEPARIN SODIUM,PORCINE (1 ML) 2,500 UNIT in SODIUM CHLORIDE 0.9% 250 ML IRRIGATION ONE (13:09)
--- NOTE | 2024-05-26 13:46 | IR ---
EXAMINATION TYPE: IR angio carotid cerv BILAT DATE OF EXAM: 05/26/2024 1:31 PM COMPARISON: Pre Operative Images if available both CT/MRI or plain film CLINICAL INDICATION: Female, 73 years old with history of carotid stenosis, 16.2min floro, [id number] m2; TECHNIQUE: IR angio carotid cerv BILAT, multiple fluoroscopic images provided for procedure. Total fluoroscopy time: 16.2 minutes Total submitted images to PACS: [id number] DAP: Not reported mGym2 Gycm2 uGym2 cGycm2 or equivalent. FINDINGS: IMPRESSION: 1. Report was generated for administrative purposes only. 2. Please see the operative/procedural note for further details. [facility], , 05/26/2024 1:44 PM
[2024-05-26] MEDS ORDERED: ATROPINE SULFATE 0.1 MG/ML 10ML SYRINGE IV PRN (13:48)
[2024-05-26] MEDS ORDERED: ZOLPIDEM 5 MG TAB PO PRN (13:48)
[2024-05-26] MEDS ORDERED: MAG HYDROX/AL HYDROX/SIMETH 30 ML CUP PO PRN (13:48)
[2024-05-26] MEDS ORDERED: RX INFO: IV CONTRAST WAS GIVEN 1 EACH MISC MISCELLANE PRN (13:48)
[2024-05-26] MEDS: METOPROLOL TARTRATE 25 MG TAB PO SCH (13:54)
[2024-05-26 17:01] VITALS: BP 158/75; PULSE 68
--- NOTE | 2024-05-26 17:02 | P.PRCINT ---
Percutaneous Coronary Int. - Percutaneous Coronary Intervention Percutaneous Coronary Intervention: PROCEDURES PERFORMED: Left heart catheterization, bilateral coronary angiography, ultrasound guided arterial access, ascending aortic angiogram, bilateral carotid angiogram, PCI OM1 with a 3.25 x 12mm Xience ROME, post dilated with a 3.25mm NC balloon, IVUS circumflex INDICATION: Abnormal carotid imaging, abnormal stress test, NYHA class 3 dyspnea on exertion consistent with angina CONSENT:I have discussed the risks, benefits and alternative therapies for the above-mentioned procedure and for both sedation/analgesia as well as necessary blood product administration, if indicated, as they pertain to this patient. The patient has indicated understanding and acceptance of the risks and procedures discussed. PROCEDURE: After the risks, benefits and alternatives of the above mentioned procedure explained in detail with the patient, informed consent was obtained. Patient was taken to the catheterization lab and prepped and draped in usual fashion. Ultrasound guidance was used to assess for arterial access. 1% lidocaine was used to anesthetize the right radial artery. A 6-Montserratian sheath was placed in the right radial artery using modified Seldinger technique and ultrasound guidance. Left coronary angiography was performed with a 5-Montserratian JL 3.5 catheter and right coronary angiography was performed with a 5-Montserratian FR5 catheter in various views. A 5-Montserratian FR5 catheter was inserted into the left ventricle and pressure measurements were obtained. A 5-Montserratian VTK was attempted to cannulate the carotids however eventually a 5- [place]serr[place]ian Sim 2 catheter was used om the left common carotid and a 5Fr FR 5 catheter was used subselectively in the right carotid artery. DSA imaging was obtained. The decision was made to perform PCI of the OM1 branch. Heparin was given. A 6-Montserratian CLS 3.5 guide was used to engage the left main. A 0.014 BMW wire was advanced in the distal OM1 branch. There was significant dampening noted in the proximal portion of the circumflex. Predilation was performed with a 3.0 mm balloon. Next intervascular ultrasound was performed which showed more focal disease of the proximal OM1 branch. There was diffuse proximal to mid circumflex disease. This was felt best treated medically. Reference vessel approximate 3.25 mm. Therefore a 3.25 x 12 mm balloon and stent was placed. The stent was postdilated with a 3.25 mm balloon. Repeat intravascular ultrasound showed excellent stent apposition with no dissection. Final angiograms were performed. Preintervention there was 90% stenosis and SOTERO-3 flow and postintervention there was less than 10% stenosis and SOTERO-3 flow. The right radial sheath was removed and a TR band was placed with hemostasis achieved. The patient tolerated the procedure well. Patient was transported back to the post catheterization holding area in stable condition. Conscious Sedation: Patient was monitored under the direct supervision of myself for conscious sedation using Versed and fentanyl for a total duration of 63 minutes HEMODYNAMICS: Ao: 142/71 LV: 147/7, LVEDP 18 SELECTIVE CORONARY ARTERIOGRAPHY: LEFT MAIN: The left main is a large caliber, short vessel which bifurcates into the LAD and circumflex. There is no significant stenosis. LEFT ANTERIOR DESCENDING CORONARY ARTERY: LAD is a large caliber vessel which wraps around to the apex. There is mild 20-30% stenosis of the mid LAD. Diagonal 1 is small to moderate caliber with mild disease.. LEFT CIRCUMFLEX CORONARY ARTERY: Left circumflex is a moderate to large caliber vessel with diffuse 30-40% proximal circumflex stenosis. OM1 is a moderate to large caliber with a proximal 90% stenosis. The circumflex gives off the PDA and is the dominant vessel. RIGHT CORONARY ARTERY: The right coronary artery is a small caliber vessel which gives off a marginal branch and is nondominant. There is no significant stenosis. Ascending aortic angiogram: No aortic aneurysm or aortic dissection. Normal arch Left carotid artery: there is significant calcification of the left internal carotid artery with a 50-60% stenosis. Right internal carotid artery: There is mild 30% right internal carotid artery stenosis FINAL IMPRESSION: 1. CAD as described above including 20-30% proximal LAD, 30-40% proximal circumflex and 90% OM1 stenosis 2. Mildly elevated left sided filling pressures 3. Moderate 50-60% left internal carotid artery stenosis, mild 30% right internal carotid artery stenosis. 4. S/p PCI OM1 with a 3.25 x 12mm Xience ROME, post dilated with a 3.25mm NC balloon PLAN: 1. Aggressive risk factor modification per most recent ACC/AHA guidelines. 2. Continue dual antiplatelets with aspirin and Plavix for 6 months
[2024-05-26] MEDS ORDERED: METOPROLOL TARTRATE 25 MG TAB PO SCH (21:00)
[2024-05-27] MEDS ORDERED: CLOPIDOGREL 75 MG TAB PO SCH (09:00)
== END 2024-05-26 17:40 | disposition home or self-care (01) ==
LOC: CATHCVL 10:34
PROVIDERS: ATTEND Internal Medicine
DX: I25.10 Atherosclerotic heart disease of native coronary artery without angina pectoris (principal); I65.22 Occlusion and stenosis of left carotid artery; I10 Essential (primary) hypertension; E78.5 Hyperlipidemia, unspecified; E11.9 Type 2 diabetes mellitus without complications; Z79.02 Long term (current) use of antithrombotics/antiplatelets; Z79.82 Long term (current) use of aspirin; Z79.4 Long term (current) use of insulin; Z79.899 Other long term (current) drug therapy
CPT/HCPCS: 99152; 99153; 92978; 93458; 36222 ×2; C9600; C1769 ×2; C1887; C1725 ×2; C1753; C1874; J2250; J1644 ×3; J2003; J3010; Q9967; J2305

== ENCOUNTER → 2024-10-14 | Outpatient (CLI) | payer MEDICARE ==
--- NOTE | 2024-10-14 13:38 | BD ---
EXAMINATION TYPE: Axial Bone Density DATE OF EXAM: 10/14/2024 CLINICAL HISTORY: 73 years old Female. ICD-10 CODE: Z78.0 POST FABRICIO , Additional History: Height: 62.2 Weight: 145 FRAX RISK QUESTIONS: Secondary Osteoporosis: 3. Menopause before 45: yes RISK FACTORS HISTORY OF: Surgery to Spine/Hip(right/left)/Wrist (right/left): lumbar surgery When: over 30 years ago MEDICATIONS: EXAM MEASUREMENTS: Bone mineral densitometry was performed using the [employer]atix GI System. Bone mineral density about the R hip (g/cm2): 1.047 Bone mineral density about the L hip (g/cm2): 1.040 T Score values are as follows: -----R Neck: -0.2 -----L Neck: 0.2 -----R Total: 0.3 -----L Total: 0.3 Z Score values are as follows: -----R Neck: 1.7 -----L Neck: 2.1 -----R Total: 2.1 -----L Total: 2.0 Bone mineral density has: Decreased -2.3% since study of: 06-03-22 FRAX%s: The graph provided illustrates a 8.2% chance for a major osteoporotic fx and a 0.9% chance fo r the hips probability for fx in 10 years time. IMPRESSION: Normal (Values between +1 and -1 indicate normal bone mass). Consider repeating this study in 5 year s or sooner if there is some new clinical indication. NOTE: T-SCORE=SD OF THE YOUNG ADULT MEAN. [facility], , 10/14/2024 1:35 PM
== END | disposition home or self-care (01) ==
LOC: RADBDWWP 10:47
PROVIDERS: ATTEND Internal Medicine Endocrinology, Diabetes & Metabolism
DX: M85.851 Other specified disorders of bone density and structure, right thigh (principal); Z78.0 Asymptomatic menopausal state
CPT/HCPCS: 77080

== ENCOUNTER → 2024-12-28 | Outpatient (CLI) | payer MEDICARE ==
--- NOTE | 2024-12-29 09:48 | MM ---
Reason for Exam: Screening (asymptomatic). Last screening mammogram was performed 12 month(s) ago. Patient History: Menarche at age 10. First Full-Term at age 18. Hysterectomy at age 43. Postmenopausal. Patient has history of breast feeding. Excisional Biopsy on the Right side. Sister had breast cancer, age 69. Risk Values: Samara 5 year model risk: 4.0%. NCI Lifetime model risk: 8.0%. Prior Study Comparison: 12/19/2021 Bilateral MG 3D screening mammo w/cad, [facility]. 12/20/2022 Bilateral MG 3D screening mammo w/cad, [facility]. 12/22/2023 Bilateral MG 3D screening mammo w/cad, [facility]. Tissue Density: There are scattered areas of fibroglandular density. Findings: Analyzed By CAD. Right breast: There is no suspicious group of microcalcifications or new suspicious mass. Benign-appearing calcifications right breast. Left breast: There is no suspicious group of microcalcifications or new suspicious mass. Benign-appearing calcifications left breast. Overall Assessment: Benign, BI-RAD 2 Management: Screening Mammogram of both breasts in [address] [facility] will attempt to contact patient to return for supplemental views and ultrasound if indicated. Patient should continue monthly self-breast exams. A clinical breast exam by your physician is recommended on an annual basis. This exam should not preclude additional follow-up of suspicious palpable abnormalities. Note on Samara scores and lifetime risk: 1. A Samara score greater than 3% is considered moderate risk. If this is the case, consider specialist referral to assess eligibility for a risk reducing agent. 2. If overall lifetime risk for the development of breast cancer is 20% or higher, the patient may qualify for future screening with alternating mammogram and breast MRI. [facility], , 12/28/2024 1:37 PM. Electronically signed and approved by: Lino Bailey DO
== END | disposition home or self-care (01) ==
LOC: RADMAMWWP 13:06
PROVIDERS: ATTEND Internal Medicine
DX: Z12.31 Encounter for screening mammogram for malignant neoplasm of breast (principal); R92.323 Mammographic fibroglandular density, bilateral breasts; R92.1 Mammographic calcification found on diagnostic imaging of breast; Z78.0 Asymptomatic menopausal state; Z80.3 Family history of malignant neoplasm of breast
CPT/HCPCS: 77063; 77067